=== PATIENT | male | born 1950 | race Caucasian/White ===

== ENCOUNTER → 2018-04-26 | Outpatient (CLI) | payer BC ==
[~2018-04-26] MED LIST: AMLO5TAB2 PO; ATR20T PO
--- NOTE | 2018-04-26 14:59 | Diagnostic Imaging Report ---
PROCEDURE: CT chest without contrast. TECHNIQUE: Multiple contiguous axial images were obtained through the chest without the use of intravenous contrast. INDICATION: Left basilar pulmonary nodule. Comparison is made to study of 01/10/2014 which included the lower portions of the lung carlos. 0.8 cm subpleural nodule in the left lung base has not significantly changed. There are several other areas of nodular pleural thickening in the chest bilaterally, which are not included on the previous study. There is no evidence of parenchymal pulmonary mass. No pathologic adenopathy is identified. There is a probable punctate calcification in the left upper lobe just below level of the barbara. There is no evidence of pathologic adenopathy. There are coronary artery calcifications. IMPRESSION: Pleural nodularity in both lungs with at least one nodule in the left base unchanged since 01/10/2014. These are likely benign. No acute abnormality is seen. Dictated by: Dictated on workstation # [id number]
--- NOTE | 2018-04-26 18:21 | Diagnostic Imaging Report ---
INDICATION: Left hydrocele. FINDINGS: Right testicle measures 3.8 x 2.3 x 2.6 cm and the left testicle measures 3.5 x 2.2 x 2.4 cm. Testes demonstrate homogeneous echotexture. No discrete testicular mass is seen. There is blood flow bilaterally. There is a large left hydrocele present. There is a tiny epididymal cyst on the left measuring approximately 8 mm x 6 mm. Right epididymis is not well visualized. IMPRESSION: 1. No evidence of testicular mass or vascular compromise. 2. Large left hydrocele. 2. Small left epididymal cyst. Dictated by: Dictated on workstation # [id number]
== END ==
LOC: RAD 13:40
PROVIDERS: ATTEND Nurse Practitioner Family
DX: N43.2 Other hydrocele (principal); R91.8 Other nonspecific abnormal finding of lung field; N50.3 Cyst of epididymis
CPT/HCPCS: 71250; 76870

== ENCOUNTER → 2018-08-27 | Outpatient (CLI) | payer BC ==
--- NOTE | 2018-08-27 14:53 | Diagnostic Imaging Report ---
PROCEDURE: US Bilateral lower extremity arterial. TECHNIQUE: Multiple real-time grayscale images are obtained through both lower extremity arterial systems with color Doppler imaging and color Doppler spectral analysis. INDICATION: Peripheral vascular disease and neuropathy. FINDINGS: There is predominantly triphasic and biphasic waveforms throughout both lower extremity arterial systems. No monophasic waveforms are seen. The velocities are symmetric bilaterally. No focal velocity elevation is seen to suggest stenosis. There is no occlusion. There is some mild plaquing present bilaterally. IMPRESSION: Mild bilateral plaque. No high-grade stenosis or occlusion is detected. Dictated by: Dictated on workstation # [id number]
== END ==
LOC: RAD 12:19
PROVIDERS: ATTEND Nurse Practitioner Family
DX: I70.203 Unspecified atherosclerosis of native arteries of extremities, bilateral legs (principal); G62.9 Polyneuropathy, unspecified
CPT/HCPCS: 93925

== ENCOUNTER 2019-09-23 07:44 | Emergency (ER) | payer OTHER, BC ==
[~2019-09-23] VITALS: Ht 167 cm; Wt 68.0 kg
--- OUTSIDE RECORDS SUMMARY | 2019-09-23 08:29 | XMS REPORT | Continuity of Care Document ---
[facility] Address Unknown Phone Unavailable Care Team Providers Care Nba Player Name Role Phone [facility] Unavailable Unavailable Problems Combined list of all problems from all [facility] of [facility] and [facility] facilities. It does not include entries that were removed or entered in error. Problem Status Onset Date Problem Type Date of Resolution Comments Source H/O: hypertension Active Condition [facility] Hyperlipidemia Active Condition [facility] Impaired fasting glucose Active [facility] Knee pain Active Condition [facility] ICD-10-CM I10. Essential (primary) hyper tension with Provider Comments: Essential (Primary) Hypertension active Diagnosis [facility] ICD-10-CM Z71.89 Other specified correctional substance abuse counselor ing with Provider Comments: Counseling,Oth Specified active Diagnosis [facility] Medications Combined list of all outpatient medications recorded within the last [address] [facility] and [facility] facilities, and also all patien t-reported medications. Medication Details Route Status Patient Instructions Prescription Expires Prescript ion Number Last Dispense Date Ordering Pr ovider Order Date Source AMLODIPINE BESYLATE 10MG TAB T SALLY ONE-HALF TABLET BY MOUTH ONCE DAILY ACTIVE JUVENCIO PALUMBO 04/30/2019 [facility] ASPIRIN 81MG TAB,EC TAKE ONE T ABLET BY MOUTH ONCE A DAY ACTIVE JUVENCIO VICK 01/06/2015 [facility] CBPADMINI ATORVASTATIN CA 40MG TAB TAKE ONE-HALF TABLET BY MOUTH AT BEDTIME ACTIVE JUVENCIO PALUMBO 04/30/2019 [facility] LORATADINE 10MG TAB TAKE ONE T ABLET BY MOUTH ONCE DAILY ACTIVE JUVENCIO PALUMBO 04/30/2019 [facility] MULTIVITAMIN/MINERALS HERBAL CAP/TAB TAKE 1 CAP/TAB BY MOUTH ONCE DAILY ACTIVE JUVENCIO PALUMBO 04/30/2019 [facility] VALACYCLOVIR HCL 500MG TAB SATYA E ONE TABLET BY MOUTH ACTIVE JUVENCIO PALUMBO 04/30/2019 [facility] Allergies, Adverse Reactions, Alerts Combined list of all allergies from all [facility] and [facility] facilities. It does not include entries that were removed or entered in error. Substance Category R eaction Severity Reaction type Status Date Reported Comments Source PENICILLIN Propensity to adverse r eactions to drug (disorder) Eruption Propensity to adverse reactions to drug (disorder) active 01/06/2015 [facility] PENICILLIN Propensity to adverse r eactions to drug (disorder) Propensity to adverse reactions to drug (disorder) active 04/30/2019 [facility] Immunizations Combined list of: 1) all immunizations on record at all [facility] ies, and 2) all available immunizations on record at [facility] ([employer] [facility]) facilities. Some immunizations on record at [facility] may not be included. Immunization Series Date Given Administered By Site Reaction Lot Number CVX Code Drug Construction Technician Status Comments Source PNEUMOCOCCAL POLYSACCHARIDE PPV23 02/04/2016 33 completed [facility] INFLUENZA, UNSPECIFIED FORMULATION 01/30/2016 88 completed [facility] INFLUENZA, SEASONAL, INJECTABLE, PRESERVATIVE FREE 01/29/2016 140 completed Partner: [place]. Administered by: [place] Clinician (NPI=Not Provided). Partner Lot#: [id number] Mfr: [facility] PNEUMOCOCCAL POLYSACCHARIDE PPV23 01/05/2016 33 completed [facility] INFLUENZA (HISTORICAL) 01/06/2015 88 [facility], SEASONAL, INJECTABLE, PRESERVATIVE FREE 01/06/2015 140 completed [facility] PNEUMOCOCCAL CONJUGATE PCV 13 01/06/2015 133 completed [facility] Results Combined list of recent chemistry, hematology and other laboratory results going back no more than 15 months from the Department of [facility] and [facility] facilities. Order Name Results Value Reference Range Date Interpretation Specimen Comments Source OCCULT BLOOD FIT x1 SCREEN HEMOGLOBIN.GASTROINTESTINAL.LOWER [PRESENCE] IN STOOL BY IMMUNOASSAY --1ST SPECIMEN Negative 0 05/10/2019 Specimen Type: FECES Comment: No collection date noted [facility] B12 COBALAMIN (VITAMIN B12) [M ASS/VOLUME] IN SERUM OR PLASMA 805 pg/mL 180 - 914 04/30/2019 Specimen Type: SERUM Comment: ~ADD-ON TO BLOOD ALREADY DRAWN [facility] PSA (FV) PROSTATE SPECIFIC AG [MASS/VOLUME] IN SERUM OR PLASMA 0.34 ng/mL 0.0 - 4.0 04/30/2019 Specimen Type: SERUM Comment: ~ADD-ON TO BLOOD ALREADY DRAWN [facility] TSH (FV) THYROTROPIN [UNITS/VO LUME] IN SERUM OR PLASMA BY DETECTION LIMIT <= 0.05 MIU/L 1.95 mcIU/mL 0.45 - 5.33 04/30/2019 Specimen Type: SERUM Comment: ~ADD-ON TO BLOOD ALREADY DRAWN [facility] CBC PLATELET MEAN VOLUME [ENTI TIC VOLUME] IN BLOOD BY AUTOMATED COUNT 7.6 fL 7.4 - 10.4 04/30/2019 Specimen Type: BLOOD No comment entered. [facility] CBC ERYTHROCYTE DISTRIBUTION W IDTH [RATIO] BY AUTOMATED COUNT 12.9 % 11.5 - 14.5 04/30/2019 Specimen Type: BLOOD No comment entered. [facility] CBC HEMATOCRIT [VOLUME FRACTIO N] OF BLOOD BY AUTOMATED COUNT 49.8 % 40 - 52 04/30/2019 Specimen Type: BLOOD No comment entered. [facility] CBC HEMOGLOBIN [MASS/VOLUME] IN BLOO D 17.0 g/dL 13 - 18 04/30/2019 Specimen T ype: BLOOD No comment entered. [facility] CBC PLATELETS [#/VOLUME] IN BLOOD BY AUTOMATED COUNT 218 K/cmm 150 - 440 04/30/2019 Specimen Type: BLOOD No comment entered. [facility] CBC LEUKOCYTES [#/VOLUME] IN BLOOD B Y AUTOMATED COUNT 8.9 K/cmm 3.8 - 10.6 04/30/2019 Specimen Type: BLOOD No comment entered. [facility] CBC ERYTHROCYTES [#/VOLUME] IN BLOOD BY AUTOMATED COUNT 5.14 M/cmm 4.4 - 5.9 04/30/2019 Specimen Type: BLOOD No comment entered. [facility] CBC MCV [ENTITIC VOLUME] BY AUTOMATE D COUNT 97.0 fL 80 - 100 04/30/2019 Specimen T ype: BLOOD No comment entered. [facility] CBC MCH [ENTITIC MASS] BY AUTOMATED COUNT 33.1 pg 26 - 34 04/30/2019 Specimen T ype: BLOOD No comment entered. [facility] CBC MCHC [MASS/VOLUME] BY AUTOMATED COUNT 34.1 g/dL 32 - 36 04/30/2019 Specimen T ype: BLOOD No comment entered. [facility] CBC SEGMENTED NEUTROPHILS/100 LEUKOCYTES IN BLOOD BY AUTOMATED COUNT 66.9 % 04/30/2019 Specimen Type: BLOOD No comment entered. [facility] CBC NEUTROPHILS [#/VOLUME] IN BLOOD BY AUTOMATED COUNT 6.0 K/cmm 2.4 - 7.6 04/30/2019 Specimen Type: BLOOD No comment entered. [facility] CBC LYMPHOCYTES/100 LEUKOCYTES IN BLOOD BY AUTOMATED COUNT 20.7 % 04/11 Specimen Type: BLOOD No comment entered. [facility] CBC LYMPHOCYTES [#/VOLUME] IN BLOOD BY AUTOMATED COUNT 1.8 K/cmm 1.0 - 4.8 04/30/2019 Specimen Type: BLOOD No comment entered. [facility] CBC MONOCYTES/100 LEUKOCYTES I N BLOOD BY AUTOMATED COUNT 7.9 % 04/30 Specimen T ype: BLOOD No comment entered. [facility] CBC MONOCYTES [#/VOLUME] IN BLOOD BY AUTOMATED COUNT 0.7 K/cmm 0.1 - 1.0 04/30/2019 Specimen Type: BLOOD No comment entered. [facility] CBC EOSINOPHILS/100 LEUKOCYTES IN BLOOD BY AUTOMATED COUNT 3.7 % 04/30 Specimen T ype: BLOOD No comment entered. [facility] CBC EOSINOPHILS [#/VOLUME] IN BLOOD BY AUTOMATED COUNT 0.3 K/cmm 0.0 - 0.4 04/30/2019 Specimen Type: BLOOD No comment entered. [facility] CBC BASOPHILS/100 LEUKOCYTES I N BLOOD BY AUTOMATED COUNT 0.8 % 04/30 Specimen T ype: BLOOD No comment entered. [facility] CBC BASOPHILS [#/VOLUME] IN BLOOD BY AUTOMATED COUNT 0.1 K/cmm 0.0 - 0.2 04/30/2019 Specimen Type: BLOOD No comment entered. [facility] LIPID PROFILE CHOLESTEROL [MAS S/VOLUME] IN SERUM OR PLASMA 183 mg/dL 118 - 200 04/30/2019 Specimen Type: SERUM No comment entered. [facility] LIPID PROFILE TRIGLYCERIDE [MA SS/VOLUME] IN SERUM OR PLASMA 55 mg/dL Specimen Type: SERUM No comment entered. [facility] LIPID PROFILE LDL CHOLESTEROL (CALCU LATED) 109 04/30/2019 Specimen Type: SERUM No comment entered. [facility] LIPID PROFILE CHOLESTEROL IN H DL [MASS/VOLUME] IN SERUM OR PLASMA 63 mg/dL Specimen Type: SERUM No comment entered. [facility] RENAL+LIVER PROFILE GLUCOSE [M ASS/VOLUME] IN SERUM OR PLASMA 109 mg/dL 70 - 110 04/30/2019 Specimen Type: SERUM No comment entered. [facility] RENAL+LIVER PROFILE ALBUMIN [M ASS/VOLUME] IN SERUM OR PLASMA 3.9 g/dL 3.4 - 5.0 04/30/2019 Specimen Type: SERUM No comment entered. [facility] RENAL+LIVER PROFILE ASPARTATE AMINOTRANSFERASE [ENZYMATIC ACTIVITY/VOLUME] IN SERUM OR PLASMA 31 U/L 15 - 37 04/30/2019 Specimen Type: SERUM No comment entered. [facility] RENAL+LIVER PROFILE BILIRUBIN. TOTAL [MASS/VOLUME] IN SERUM OR PLASMA 0.57 mg/dL 0.3 - 1.2 04/30/2019 Specimen Type: SERUM No comment entered. [facility] RENAL+LIVER PROFILE CHLORIDE [ MOLES/VOLUME] IN SERUM OR PLASMA 105 mmol/L 98 - 107 04/30/2019 Specimen Type: SERUM No comment entered. [facility] RENAL+LIVER PROFILE PROTEIN [M ASS/VOLUME] IN SERUM OR PLASMA 6.8 g/dL 6.1 - 7.9 04/30/2019 Specimen Type: SERUM No comment entered. [facility] RENAL+LIVER PROFILE SODIUM [MO LES/VOLUME] IN SERUM OR PLASMA 137 mmol/L 136 - 145 04/30/2019 Specimen Type: SERUM No comment entered. [facility] RENAL+LIVER PROFILE POTASSIUM [MOLES/VOLUME] IN SERUM OR PLASMA 4.1 mmol/L 3.5 - 5.1 04/30/2019 Specimen Type: SERUM No comment entered. [facility] RENAL+LIVER PROFILE "CARBON DI OXIDE, TOTAL [MOLES/VOLUME] IN SERUM OR PLASMA" 25 mmol/L 21 - 32 04/30/2019 Specimen Type: SERUM No comment entered. [facility] RENAL+LIVER PROFILE UREA NITRO GEN [MASS/VOLUME] IN SERUM OR PLASMA 18 mg/dL 6 - 20 04/30/2019 Specimen Type: SERUM No comment entered. [facility] RENAL+LIVER PROFILE CALCIUM [M ASS/VOLUME] IN SERUM OR PLASMA 8.9 mg/dL 8.9 - 10.3 04/30/2019 Specimen Type: SERUM No comment entered. [facility] RENAL+LIVER PROFILE ALANINE AM INOTRANSFERASE [ENZYMATIC ACTIVITY/VOLUME] IN SERUM OR PLASMA BY NO ADDITION OF P-5'-P 30 U/L 0 - 63 04/30/2019 Specimen Type: SERUM No comment entered. [facility] RENAL+LIVER PROFILE ALKALINE P HOSPHATASE [ENZYMATIC ACTIVITY/VOLUME] IN SERUM OR PLASMA 64 U/L 32 - 126 04/30/2019 Specimen Type: SERUM No comment entered. [facility] RENAL+LIVER PROFILE eGFR 90 04/30/2019 Specimen Type: SERUM No comment entered. [facility] RENAL+LIVER PROFILE CREATININE [MASS/VOLUME] IN SERUM OR PLASMA 0.85 mg/dL .61 - 1.24 04/30/2019 Specimen Type: SERUM No comment entered. [facility] C ANTIBODY HEPATITIS HEPATITIS C VIRUS AB [PRESENCE] IN SERUM OR PLASMA BY IMMUNOASSAY Nonreactive 04/30/2019 Specimen Type: SERUM Comment: ~ADD-ON TO BLOOD ALREADY DRAWN HCV:A negative test result does not exclude the possibility of HCV:exposure to or infection with HCV. HCV antibodies may be HCV:undetectable in some stages of the infection and in some HCV:clinical conditions. Results from immunosuppressed individuals HCV:should be interpreted with caution. Negative for HIV-1 antigen and HIV-1/HIV-2 antibodies. No laboratory evidence of HIV infection. If acute HIV infection is suspected, consider testing for HIV-1 RNA. [facility] HIV Ag/Ab COMBO HIV 1+2 AB+HIV 1 P24 AG [PRESENCE] IN SERUM OR PLASMA BY IMMUNOASSAY Nonreactive 04/30/2019 Specimen Type: SERUM Comment: ~ADD-ON TO BLOOD ALREADY DRAWN HCV:A negative test result does not exclude the possibility of HCV:exposure to or infection with HCV. HCV antibodies may be HCV:undetectable in some stages of the infection and in some HCV:clinical conditions. Results from immunosuppressed individuals HCV:should be interpreted with caution. Negative for HIV-1 antigen and HIV-1/HIV-2 antibodies. No laboratory evidence of HIV infection. If acute HIV infection is suspected, consider testing for HIV-1 RNA. [facility] Vital Signs Combined list of inpatient and outpatient Vital Signs from all [facility] and/or [facility] medical facilities within the last 15 months. The included entries comply with the patient's data sharing authorizations. Vital Sign Value Date Comments Source SYSTOLIC BLOOD PRESSURE 137mm[ Hg] 04/30/2019 10:25:00 [facility] DIASTOLIC BLOOD PRESSURE 87mm[ Hg] 04/30/2019 10:25:00 [facility] PAIN 0 04/30 10:25:00 [facility] Encounters Combined list of encounters at [facility] and[facility]or [facility] [facility] for the last 15 months. Not all [place] inpatient encounters are included. The incl uded entries comply with the patient's data sharing authorizations. Location Location Details Encounter Type Encounter Number Reason For Visit Attending Provider ADM Date DC Date Status Disposition Source Outpatient Encounter [id number] _MAPID:en 10/17/2018 [facility] Outpatient Encounter [id number] ICD-10- CM Z71.89 Other specified counseling with Provider Comments: Counseling,Oth Specified MELVIN HARVEY I 03/18/2019 [facility] Outpatient Encounter [id number] _MAPID:[id number] 04/30/2019 [facility] OFFICE/[place] [id number] ICD-10- CM I10. Essential (primary) hypertension with Provider Comments: Essential (Primary) Hypertension JUVENCIO PALUMBO 04/30/2019 [facility] Outpatient Encounter [id number] _MAPID: [id number] 05/14/2019 [facility] Outpatient Encounter [id number] _MAPID:en [id number] 05/24/2019 [facility] Outpatient Encounter [id number] _MAPID: endReason07/11/2019 [facility] Procedures No Data Provided for This Section Social History Combined list of available smoking, tobacco, and other social history on record at [facility] of [facility] and/or [facility] facilities. The included entrie s comply with the patient's data sharing authorizations. Social History Type Response Date Comment Source Tobacco smoking status ORIS VA-TOBACCO USE MEAT STUFFER NO 03/18/2019 [facility] History of tobacco use VA-TO BACCO USE MED NO 03/18/2019 [facility] History of tobacco use VA-TO BACCO USE ADVICE 03/18/2019 [facility] History of tobacco use V16 T OBACCO USE SCREEN 03/18/2019 [facility] History of tobacco use VA-TO BACCO USER EVERY DAY 03/18/2019 [facility] History of tobacco use VA-TO BACCO USE WI 30 MIN OF WAKEUP 03/18/2019 [facility] History of tobacco use VA-TO BACCO USE 30 YEARS OR MORE 03/18/2019 [facility] History of tobacco use NON-T OBACCO USER 01/06/2015 [facility] Assessment and Plan No Data Provided for This Section Plan of Care No Data Provided for This Section Family History No Data Provided for This Section Advance Directives No Data Provided for This Section Functional Status No Data Provided for This Section
--- OUTSIDE RECORDS SUMMARY | 2019-09-23 08:29 | XMS REPORT ---
Author Author O Entregador. land surveyor [facility] Address [address] [address] Care Team Providers Care Business Development Representative Name Role Phone EUSEBIO LAI RN INFORMATICS Unavailable Unavailable RICK LOO, DAQUAN Kinsey Unavailable Unavailable Unavailable Unavailable Allergies Normalized Allergy Reported Date of Reaction(s) Care Provider Facility Allergy Type classification allergen Allergy Onset Drug Allergy Penicillins Penicillin 02-20-2012 - no information KEVYN SCHOELING Not Available (11 sources.) (antibiotic) MD ([id number]) Medications No Information Problems Problem Normalized Date Last Normalized Normalized Provider Fa cility Classification Problem(s) Recorded Problem Problem Sta tus Duration Abdominal pain Abdominal Episodic Active ASHDEN PANDA Not Available (1 source.) pain, (82373) unspecified site Other male Cyst of Episodic Active EUSEBIO MING Not Avail able genital epididymis (75592) disorders (3 sources.) Other male Hydrocele, Episodic Active ASHDEN PANDA Not Briteny ilable genital unspecified (40497) disorders (1 source.) Abdominal Inguinal Episodic Active ASHDEN PANDA Not Availa ble hernia (1 hernia, (38340) source.) without mention of obstruction or gangrene, unilateral or unspecified (not specified as recurrent) Other male Other Episodic Active EUSEBIO MING Not Avail able genital hydrocele (27181) disorders (3 sources.) Other lower Other Episodic Active EUSEBIO MING Not Avai lable respiratory nonspecific (47570) disease (3 abnormal sources.) finding of lung field Residual Other Episodic Active KEVYN SCHOELING Not Avai lable codes; MD fred (71947) unclassified abnormal (1 source.) findings Other male Other Episodic Active ASHDEN PANDA Not Avail able genital specified (42868) disorders (1 disorders of source.) male genital organs Other nervous Polyneuropathy Chronic Active EUSEBIO MING [facility] system , unspecified Michelle disorders (2 Hospital - sources.) [place] (15829) Other lower Solitary Episodic Active ASHDEN PANDA Not Avai lable respiratory pulmonary (81610) disease (1 nodule source.) Peripheral and Unspecified Chronic Active EUSEBIO MING [facility] visceral atherosclerosi Michelle atherosclerosi s of [facility] - s (2 sources.) arteries [facility] extremities, (85823) bilateral legs Procedures No Information Immunizations Normalized Immunization Date Notes Care Provider Facili ty Immunization influenza, 01-25-2017 no information no name Not Availab le injectable, (75163) quadrivalent, preservative free Results No Information Vital Signs No Information Interventions No Information Plan of Treatment No Information Goals No Information Social History No Information Functional Status No Information Mental Status No Information Encounters Encounter Normalized Encounter Encounter Diagnosis Care Provi leslie Organization Date Type 09-23-2019 Emergency department no information DAQUAN CABRERA MD (no [facility] Michelle patient visit phone) [facility] (no phone) 08-27-2018 Patient encounter no information no name no or ganization name procedure 08-27-2018 Patient encounter no information no name no or ganization name procedure 04-26-2018 Patient encounter no information no name no or ganization name procedure 01-10-2014 Patient encounter no information no name no or ganization name procedure 01-07-2014 Patient encounter no information no name no or ganization name procedure 08-29-2013 Patient encounter no information no name no or ganization name procedure Patient encounter no information no name no organizat ion name procedure Medical Equipment No Information Payers No Information Additional Source Comments This clinical document has been generated using [employer] software that has been certified by the Office of the National Coordinator for Health Information Technology (ONC 15.99.04.3023.Diam.[id number]) and the National Committee for Hardware Technician (NCQA, as an eMeasure certified technology). FOR RECORDS PERTAINING TO PATIENTS WHO ARE OR HAVE BEEN ENROLLED IN A CHEMICAL D EPENDENCY/SUBSTANCE ABUSE PROGRAM, SOME INFORMATION MAY BE OMITTED. This clinica l summary was aggregated from multiple sources. Caution should be exercised in using it in the provision of clinical care. This summary normalizes information from multiple sources, and as a consequence, information in this document may ma terially change the coding, format and clinical context of patient data. In marie tion, data may be omitted in some cases. CLINICAL DECISIONS SHOULD BE BASED ON T HE PRIMARY CLINICAL RECORDS. [employer] provides no warranty or guara ntee of the accuracy or completeness of information in this document.The followi ng information is based on time limited clinical information
--- OUTSIDE RECORDS SUMMARY | 2019-09-23 08:30 | XMS REPORT | Encounter Summary ---
Author Author Department of [facility] ELOY miller ALPHONSO Organization Department of [facility] Address [address] [place] [address] Phone Unavailable Care Team Providers Care Hardware Assembler Name Role Phone JUVENCIO PALUMBO PCP Unavailable Insurance Providers: All historical and current Section Date Range: From patient's date of to the date document was create d. This section includes the names of all active insurance providers for the ramiro allan Insurance Provider Type of Coverage Plan Name Start of Policy Co verage End of Policy Coverage Group Number Member ID Insurance Provider's Telephone N umber Policy Woodard's Name Patient's Relationship to Policy Woodard BC BS AR BLUECARD PREFERRED PROVIDER ORGANIZATION (PPO) COMPREHE NSIVE MAJOR Jan 08, 2019 [id number] ELOY KNIGHT CODY ENT [place] BS [place] BLU[place] PREFERRED PROVIDER ORGANIZATION (PPO) COMPREHE NSIVE MAJOR Jan 08, 2019 [id number] ELOY KNIGHT CODY ENT BCBS [place]ORIE COMPREHENSIVE MAJOR MEDICAL USD 250 Jul 10, 2015 [id number] [phone] ELOY KNIGHT PATIENT [place] COMPREHENSIVE MAJOR MEDICAL USD 250 Jul 10, 2015 [id number] [phone] EUGENEELOY PATIENT MEDICARE (WNR) MEDICARE (M) PART A Jan 08, 2019 PART A [id number] [phone] EUGENEELOY PATIENT MEDICARE (WNR) MEDICARE (M) PART A Jun 09, 2015 PART A [id number] [phone] ELOY KNIGHT PATIENT MEDICARE (WNR) MEDICARE (M) PART B Jun 09, 2015 PART B [id number] [phone] ELOY KNIGHT PATIENT [employer] PRESCRIPTION [place] Jul 10, 2015 [id number] [phone] ELOY KNIGHT PATIENT [employer] [place] Jan 08, 2019 [id number] ELOY KNIGHT PATIENT Selected Encounter This section includes the information on record at [place] for the Encounter. Date/Time Encounter Type Encounter Description Reason Provider Source May 24, 2019 10:13 AM Outpatient Encounter COMMUNITY CARE CONSULT KLEBER HAMMOND IHRambo Encounter Template Text not used by [place] Assessments - Encounter Diagnoses No Data Provided for This Section Plan of Treatment: Future Appointments (+ 6 months) and Future Tests (+/- 45 day s) The Plan of Treatment section includes future care activities for the patient fr om all [place] treatment facilities. This section includes future appointments and fu ture orders which are active, pending or scheduled. Active, Pending, and Scheduled Orders This section includes a listing of several types of activ e, pending, and scheduled orders, including clinic medications orders, diagnosti c test orders, procedure orders and consult orders; where the start date of th e order is 45 days before the date of the Encounter or 45 days after the date o f the Encounter. The data comes from all [place] treatment facilities. Test Date/Time Test Type Test Details Facility Name Apr 26, 2019 12:00 AM Laboratory - Chemistry Order URINALYSIS UR INE SP ONE-TIME [facility] Surgical Procedures: All associated to the encounter No Data Provided for This Section Lab Results: +/- 30 days of the encounter This section includes the Chemistry and Hematology Lab R esults on record with [place] for the patient. Radiology Reports and Pathology Report s are provided separately, in subsequent sections. Lab Results This section contains the Chemistry/Hematology Results patrice t were resulted 30 days before or 30 days after the date of the Encounter. Date/Time Source Result Type Result - Unit Interpretation Reference Range Comment May 10, 2019 04:[address] [facility] OCCULT BLOOD FIT x1 SCREE N Specimen Type: FECES Comment: No collection date noted OCCULT BLOOD FIT x1 SCREEN Negative NEG ATIVE Apr 30, 2019 08:[address] [facility] B12 Specimen Type: SERUM Comment: ~ADD-ON TO BLOOD ALREADY DRAWN VITAMIN B12 (FV) 805 pg/mL 180-914 Apr 30, 2019 08:[address] [facility] PSA (FV) Specimen Type: SERUM Comment: ~ADD-ON TO BLOOD ALREADY DRAWN PSA (FV) 0.34 ng/mL 0.0-4.0 Apr 30, 2019 08:[address] [facility] TSH (FV) Specimen Type: SERUM Comment: ~ADD-ON TO BLOOD ALREADY DRAWN TSH (FV) 1.95 mcIU/mL 0.45-5.33 Apr 30, 2019 08:[address] [facility] CBC Specimen Type: BLOOD No comment entered. MPV (FV) 7.6 fL 7.4-10.4 RDW (FV) 12.9 % 11.5-14.5 HCT (FV) 49.8 % 40-52 HGB (FV) 17.0 g/dL 13-18 PLT (FV) 218 K/cmm 150-440 WBC (FV) 8.9 K/cmm 3.8-10.6 RBC (FV) 5.14 M/cmm 4.4-5.9 MCV (FV) 97.0 fL 80-100 MCH (FV) 33.1 pg 26-34 MCHC (FV) 34.1 g/dL 32-36 NE% (FV) 66.9 % SEE ABSOLUTE # NE# (FV) 6.0 K/cmm 2.4-7.6 LY% (FV) 20.7 % SEE ABSOLUTE # LY# (FV) 1.8 K/cmm 1.0-4.8 MO% (FV) 7.9 % SEE ABSOLUTE # MO# (FV) 0.7 K/cmm 0.1-1.0 EO% (FV) 3.7 % SEE ABSOLUTE # EO# (FV) 0.3 K/cmm 0.0-0.4 BA% (FV) 0.8 % SEE ABSOLUTE # BA# (FV) 0.1 K/cmm 0.0-0.2 Apr 30, 2019 08:[address] [facility] LIPID PROFILE Specimen Type: SERUM No comment entered. CHOLESTEROL, TOTAL (FV) 183 mg/dL 118-20 0 TRIGLYCERIDE (FV) 55 mg/dL <200 LDL CHOLESTEROL (CALCULATED) 109 HDL CHOLESTEROL (FV) 63 mg/dL >40 Apr 30, 2019 08:[address] [facility] RENAL+LIVER PROFILE Specimen Type: SERUM No comment entered. GLUCOSE (FV) 109 mg/dL 70-110 ALBUMIN (FV) 3.9 g/dL 3.4-5.0 AST (FV) 31 U/L 15-37 TOTAL BILIRUBIN (FV) 0.57 mg/dL 0.3-1.2 CHLORIDE (FV) 105 mmol/L 98-107 TOTAL PROTEIN (FV) 6.8 g/dL 6.1-7.9 SODIUM (FV) 137 mmol/L 136-145 POTASSIUM (FV) 4.1 mmol/L 3.5-5.1 CO2 (FV) 25 mmol/L 21-32 UREA NITROGEN (FV) 18 mg/dL 6-20 CALCIUM (FV) 8.9 mg/dL 8.9-10.3 ALT (FV) 30 U/L 0-63 ALK. PHOS. (FV) 64 U/L 32-126 eGFR 90 CREATININE (FV) 0.85 mg/dL .61-1.24 Apr 30, 2019 08:[address] [facility] C ANTIBODY HEPATITIS Specimen Type: SERUM Comment: ~ADD-ON TO BLOOD [...] is suspected, consider testing for HIV-1 RNA. C ANTIBODY HEPATITIS Nonreactive Nonrea ctive Apr 30, 2019 08:[address] [facility] HIV Ag/Ab COMBO Specimen Type: SERUM Comment: ~ADD-ON TO BLOOD [...] is suspected, consider testing for HIV-1 RNA. HIV Ag/Ab COMBO Nonreactive Nonreactive Vital Signs: All taken on the encounter date No Data Provided for This Section Immunizations: All administered on the encounter date No Data Provided for This Section Social History: Smoking Status (Most current) and Tobacco Use (All prior to enco unter date) No Data Provided for This Section Advance Directives: All historical and current No Data Provided for This Section Allergies and Adverse Reactions (ADRs): All historical and current Section Date Range: From patient's date of to the date document was create d. This section includes Allergies and Adverse Reactions (ADR s) on record with [place] for the [place]. The data comes from a ll [place] treatment facilities. It does not list Allergies/ADRs that were removed or entered in error. Some allergies/ADRs may be reported in t he Immunization section. Allergen Event Date Event Type Reaction(s) Severity Source PENICILLIN Apr 30, 2019 Propensity to adverse reactions to drug (diso rder) KLEBER HAMMOND PENICILLIN Jan 06, 2015 Propensity to adverse reactions to drug (disorder) Eruption [facility] 15 Medications: VA dispensed (-15 months) and Non-VA Documented (Obtained Outside A) Section Date Range: 1) prescriptions processed by a [facility] pharmacy in the last 15 m [facility], and 2) all medications recorded in the [place] medical record as "non-VA medic ations". Pharmacy terms refer to [place] pharmacy's work on prescriptions. [place] patient s are advised to take their medications as instructed by their health care team. The data comes from all [place] treatment facilities. Glossary of Pharmacy Terms:Active = A prescription that can be filled at the local [place] pharmacy.Active: On Hold = An active prescription that will not be filled until pharmacy resolves the issue.Active: Susp = An active prescription that is not scheduled to be filled yet.Clinic Order = A medication received during a visit to a [place] clinic or emergency department (currently not available).Discontinued = A prescription stopped by a VA provider. It is no longer available to be filled. = A prescription which is too old to fill. This does not refer to the expiration date of the medication in the container. Non-VA = A medication that came from someplace other than a VA pharmacy. This may be a prescription from either the VA or other providers that was filled outside the VA. Or, it may be an over the counter (OTC), herbal, dietary supplement or sample medication.Pending = This prescription order has been sent to the Pharmacy for review and is not ready yet. Medication Name and Strength Pharmacy Term Instructions Quantity Or dered Prescription Expires Prescription Number Last Dispense Date Ordering Provider Facility AMLODIPINE BESYLATE 10MG TAB Non-VA TAKE ONE-HALF TABLET BY MOUTH ONCE DAILY Non-VA Documented by: JUVENCIO PALUMBO nted at: [facility] ASPIRIN 81MG TAB,EC Non- VA TAKE ONE TABLET BY MOUTH ONCE A DAY Non-VA Documented by: JUVENCIO VICKume nted at: [facility] ATORVASTATIN CA 40MG TAB Non-VA TAKE ONE- HALF TABLET BY MOUTH AT BEDTIME Non-VA Docume nted by: JUVENCIO PALUMBO nted at: [facility] LORATADINE 10MG TAB Non- VA TAKE ONE TABLET BY MOUTH ONCE DAILY Non-VA Documented by: JUVENCIO PALUMBO nted at: [facility] MULTIVITAMIN/MINERALS HERBAL CAP/TAB Non-VA TAKE 1 CAP/TAB BY MOUTH ONCE DAILY Non-VA Documented by: JUVENCIO PALUMBO nted at: [facility] VALACYCLOVIR HCL 500MG TAB Non-VA TAKE ONE TABLET BY MOUTH N on-VA Documented by: JUVENCIO PALUMBO nted at: [facility] Problems (Conditions): All historical and current Section Date Range: From patient's date of to the date document was create d. This section includes a list of Problems (Conditions) know n to [facility] for the patient. It includes both active and inacti ve problems (conditions). The data comes from all [place] treatment facilities. Problem Status Problem Code Date of Onset Date of Resolution Comm ent(s) Provider Source H/O: hypertension Active [id number] ALICIA VICK [facility] Hyperlipidemia Active [id number] JUVENCIO VICK [facility] Impaired fasting glucose Active [id number] YENY MAJOR [facility] Knee pain Active [id number] JUVENCIO VICK [facility] Radiology Reports: +/- 30 days of the encounter No Data Provided for This Section Pathology Reports: +/- 30 days of the encounter No Data Provided for This Section Encounter Notes: All associated encounter notes This section contains the clinical notes associated to the Encounter. Date/Time Encounter Note(s) Provider Source May 24, 2019 10:13 AM NONVA NOTE: LOCAL TITLE: COMMUNITY CARE-SCHEDULING STANDARD TITLE: NONVA NOTE DATE OF NOTE: MAY 24, 2019@10:13 ENTRY DATE: MAY 24, 2019@10:13:52 AUTHOR: JUVENCIO KENDALL COSIGNER: URGENCY: STATUS: COMPLETED Patient Centered Community Care (PC3) Program Department [facility] Choice Approval for Medical Care VA-Form [id number] Certain protected health information (PHI) may be enclosed; specifically information related to Drug Abuse, Alcoholism or Alcohol Abuse, Sickle Cell Anemia, and Human Immunodeficiency Virus (HIV). This specific PHI may NOT be re-disclosed or used by the recipient person or office for any purpose other than that for which the disclosure was made. [Ref. 38 [facility] 7332(b)(2)(H)(ii)] The information is b eing disclosed by [place] only for the treatment and care of the named patient in the health record. Accounting of disclosure must be maintained when required. Referral Urgency: Routine Indicate time frame for appointment: Clinically Indicated Date (MARIANELA): Apr 30, 2019 Category of Care/Type of Specialty: COMMUNITY CARE-GENERALSURGERY Type of Specialist: COMMUNITY CARE-GENERALSURGERY Type of Service/Procedure: SEOC ID: [id number] [id number] Description: See previous comments for details [facility] Eligibility: Drive Time CAP-Community Care Approved, Program: Authorized/Pre-authorized Referral - 1703 Admin Screening for Care Coordination SCD-Screening Code: [id number] Urgency: not within 48 hrs CAN Score: 25 Admin Screening Care Coordination: Basic Clinical Triage: Not Required Cold Roller may proceed with scheduling of appointment. Basic care coordination may include: -assistance with navigation -scheduling -post-appointment follow-up Upon consult completion, a CPRS alert will be sent to ordering provider. Recommended frequency of contact: as needed Admin Staff alert, sending to: Kashif Mckeon . CRISTINA-Initiate Community Care Referral SEOC - [facility] Office of Community Care [facility] Office of Community Care - Standardized Episode of Care General Surgery CAT-SEOC Randal: SURGERY GENERAL SEOC ID: [id number] [id number] Description: This authorization covers services associated with all medical care listed below for the referred condition on the consult. Duration: 180 days Procedural Overview: 1. Initial outpatient evaluation and treatment for the referred condition indicated on the consult 2. Diagnostic imaging relevant to the referred condition on the consult 3. Diagnostic studies relevant to the referred condition on the consult 4. Labs and pathology relevant to the referred condition on the consult 5. Procedures relevant to the referred condition on the consult including but not limited to: I&D, biopsy, lesion excision with repair, port placement etc. 6. Anesthesia consultation related to the procedure 7. Pre-operative medical and cardiac clearance as indicated (including H+P/labs, EKG, CXR) 8. Inpatient or observation admission for surgery/ procedure if indicated 9. Inpatient admission or observation status for complications related to the surgery/procedure VA notification within 72 hours to Facility Community Care Office who initiated the referral is required for complications related to the initial surgery/procedure 10. Follow-up visits for this episode of care relevant to the referred condition on the consult Please visit the [facility] Storefront [email or web address] for additional resources and requirements pertaining to the following Pharmacy prescribing requirements Durable Medical Equipment (DME), Prosthetics, and Orthotics prescribing requirements Precertification (PRCT) process requirements Request for Services (RFS) requirements LIONEL CAT-SEOC Randal: SURGERY GENERAL ICR-Initiate Community Care Referral * * * [place] Critical Result Contact Information * * * Please contact the VA at [phone] & ask for Veterans PCP with in one business day if there are any critical or significantly abnormal findings that need to be addressed. Thank you for your help in ensuring that critical results reach the VA ordering provider. Number of Visits, Frequency, and Duration: Duration: 180 days [facility] or [facility] Preferred Provider Name and Contact Information: Eligibility Verification: As the authorized VA customer engagement representative, I hereby confirm that the is eligible for Community Care services. The [facility] basic eligibility was verified on . Contact the Facility Community Care Office first to provide information to the VA or to reach a VA ordering provider. All contact from the contractor will be documented in the [facility] record by the facility [place] community Care and the VA provider will be notified for awareness. Report all Critical Findings related to this authorization to the issuing office below. All other questions regarding this authorization should be directed to: CHRIS CRUZ Facility Community Care Office Contact: Facility Community Care emergency response officer or Equivalent: Name: FUNMI SHAFFER Title: CHIEF, OFFICE OF COMMUNITY CARE Contact Number (Normal Business Hours):[phone] AOD/Emergency Contact After Hours Number: From Station Number: [phone] Facility Name: [facility] ([facility] Street Address: [address] City: [place] State: [place] Zip: [address] Information: Name: ELOY KNIGHT : Jun SSN: [id number] Address: ELOY KNIGHT [address], [place] [address] [facility] Alternate Phone: PATIENT WORK PHONE - NONE FOUND 's Alternate Address: Alternate POC for [facility]: Name: Address: Phone: In accordance with 38 CFR 17.7468-4311, [place] will pay for non-VA hospital care and medical services that are authorized by [place] for [place] who are determined by [place] to meet the [place] Choice Program eligibility criteria set forth by section 101 of the Act and 38 CFR 17.1510 and any other eligibility standards that may apply to particular services (such as health care for newborns of Veterans under 38 CFR 17.38(a)(xiv) and dental benefits under 17.160-17.169). /balbir/ JUVENCIO KENDALL Signed: 05/24/2019 10:14 JUVENCIO KENDALL
--- OUTSIDE RECORDS SUMMARY | 2019-09-23 08:30 | XMS REPORT | Encounter Summary ---
Author Author Department of [facility] ELOY miller ALPHONSO Organization Department of [facility] Address [address] [place] [address] Phone Unavailable Care Team Providers Care Stock Selector Name Role Phone MIRYAMALIREZA JUVENCIO PCP Unavailable Insurance Providers: All historical and [...] (PPO) COMPREHE NSIVE MAJOR Jan 08, 2019 [id number] ELOY KNIGHT CODY ENT [place] PREFERRED PROVIDER ORGANIZATION (PPO) COMPREHE NSIVE MAJOR Jan 08, 2019 [id number] ELOY KNIGHT CODY ENT BCBS [place]OR[place] COMPREHENSIVE MAJOR MEDICAL USD 250 Jul 10, 2015 [id number] [phone] ELOY KNIGHT PATIENT [place] COMPREHENSIVE MAJOR MEDICAL USD 250 Jul 10, 2015 [id number] [phone] ELOY KNIGHT PATIENT MEDICARE (WNR) MEDICARE (M) PART A Jan 08, 2019 PART A [id number] ELOY KNIGHT PATIENT MEDICARE (WNR) MEDICARE (M) PART A Jun 09, 2015 PART A [id number] [phone] ELOY KNIGHT PATIENT MEDICARE (WNR) MEDICARE (M) PART B Jun 09, 2015 PART B [id number] ELOY KNIGHT PATIENT [employer] PRES[employer] [place] Jul 10, 2015 [id number] [phone] LEOY KNIGHT PATIENT [employer] PRES[employer] [place] Jan 08, 2019 [id number] ELOY KNIGHT PATIENT Selected Encounter This section includes the information on record at [place] for the Encounter. Date/Time Encounter Type Encounter Description Reason Provider Source May 14, 2019 04:00 PM Outpatient Encounter ADMIN PAT ACTIVTIES (MASNO NCT) [facility] IHE Encounter Template Text not used by [place] [...] Chemistry Order URINALYSIS UR INE SP ONE-TIME [facility] Surgical Procedures: All associated to the [...] Range Comment May 10, 2019 04:49 PM [facility] OCCULT BLOOD FIT x1 SCREE N Specimen Type: FECES Comment: No collection date noted OCCULT BLOOD FIT x1 SCREEN Negative NEG ATIVE Apr 30, 2019 08:24 AM [facility] B12 Specimen Type: SERUM Comment: ~ADD-ON TO BLOOD ALREADY DRAWN VITAMIN B12 (FV) 805 pg/mL 180-914 Apr 30, 2019 08:24 AM [facility] PSA (FV) Specimen Type: SERUM Comment: ~ADD-ON TO BLOOD ALREADY DRAWN PSA (FV) 0.34 ng/mL 0.0-4.0 Apr 30, 2019 08:24 AM [facility] TSH (FV) Specimen Type: SERUM Comment: ~ADD-ON TO BLOOD ALREADY DRAWN TSH (FV) 1.95 mcIU/mL 0.45-5.33 Apr 30, 2019 08:23 AM [facility] CBC Specimen Type: BLOOD No comment [...] K/cmm 0.0-0.2 Apr 30, 2019 08:23 AM [facility] LIPID PROFILE Specimen Type: SERUM No comment entered. CHOLESTEROL, TOTAL (FV) 183 mg/dL 118-20 0 TRIGLYCERIDE (FV) 55 mg/dL <200 LDL CHOLESTEROL (CALCULATED) 109 HDL CHOLESTEROL (FV) 63 mg/dL >40 Apr 30, 2019 08:23 AM [facility] RENAL+LIVER PROFILE Specimen Type: SERUM No [...] mg/dL .61-1.24 Apr 30, 2019 08:23 AM [facility] C ANTIBODY HEPATITIS Specimen Type: SERUM [...] Nonrea ctive Apr 30, 2019 08:23 AM [facility] HIV Ag/Ab COMBO Specimen Type: SERUM [...] Use (All prior to enco unter date) This section includes the most current, and the historical, smoking and tobacco- related health factors from the [place] facility where the Encounter took place. Current Smoking Status This section includes the most current smoking, or tobacco -related health factor, from the [place] facility where the Encounter took place. Date/Time Current Smoking Status Comment Facility Mar 18, 2019 03:39 PM VA-TOBACCO USE WATER QUALITY ANALYST NO [facility] Tobacco Use History This section includes a history of the smoking, or tobacco -related health factors, that were collected on or before the date of the Encoun ter. The data comes from the [place] facility where the Encounter took place. Date/Time Smoking Status/Tobacco Use Comment [facility] it Mar 18, 2019 03:39 PM VA-TOBACCO USE 30 YEARS OR MORE [place] [facility] Mar 18, 2019 03:39 PM VA-TOBACCO USE ADVICE [facility] [place] [facility] Mar 18, 2019 03:39 PM VA-TOBACCO USE WATER QUALITY ANALYST NO [facility] Mar 18, 2019 03:39 PM VA-TOBACCO USE MED NO [facility] Mar 18, 2019 03:39 PM VA-TOBACCO USE WI [facility] Mar 18, 2019 03:39 PM VA-TOBACCO USER EVERY DAY [facility] Advance Directives: All historical and current No Data Provided for This Section Allergies and Adverse Reactions (ADRs): All historical and current Section Date Range: From patient's date of to the date document was create d. This section includes Allergies and Adverse Reactions (ADR s) on record with VA for the patient. The data comes from a [facility] treatment facilities. It does not list Allergies/ADRs that were removed or entered in error. Some allergies/ADRs may be reported in t Immunization section. Allergen Event Date Event Type Reaction(s) Severity Source PENIC[place] Apr 30, 2019 Propensity to adverse reactions to drug (diso rder) KLEBER HAMMOND [place] Jan 06, 2015 Propensity to adverse reactions to drug (disorder) Eruption [facility] 15 Medications: VA dispensed (-15 months) and Non-VA Documented (Obtained Outside A) Section Date Range: 1) prescriptions processed by a VA pharmacy in the last 15 m [facility], and 2) all medications recorded in the VA medical record as "non-VA medic ations". Pharmacy terms refer to VA pharmacy's work on prescriptions. VA patient s are advised to take their medications as instructed by their health care team. The data comes from all [place] treatment facilities. Glossary of Pharmacy Terms:Active = A prescription that can be filled at the local VA pharmacy.Active: On Hold = An active prescription [...] may be a prescription from either the [place] or other providers that was filled outside the [place]. Or, it may be an over the [...] Non-VA Documented by: JUVENCIO PALUMBO nted at: [facility] ASPIRIN 81MG TAB,EC Non- VA TAKE ONE TABLET BY MOUTH ONCE A DAY Non-VA Documented by: JUVENCIO VICK Docume nted at: [facility] ATORVASTATIN [place] 40MG TAB Non-VA TAKE ONE- HALF TABLET BY MOUTH AT BEDTIME Non-VA Docume nted by: JUVENCIO PALUMBO nted at: [facility] LORATADINE 10MG TAB Non- VA TAKE ONE TABLET BY MOUTH ONCE DAILY Non-VA Documented by: JUVENCIO PALUMBO nted at: [facility] MULTIVITAMIN/MINERALS HERBAL CAP/TAB Non-VA TAKE 1 CAP/TAB BY MOUTH ONCE DAILY Non-VA Documented by: JUVENCIO PALUMBO nted at: [facility] VALACYCLOVIR HCL 500MG TAB Non-VA TAKE ONE TABLET BY MOUTH N on-VA Documented by: JUVENCIO PALUMBO nted at: [facility] Problems (Conditions): All historical and current [...] Comm ent(s) Provider Source H/O: hypertension Active [id number] ALICIA VICK [facility] Hyperlipidemia Active [id number] JUVENCIO VICK [facility] Impaired fasting glucose Active [id number] YENY MAJOR [facility] Knee pain Active [id number] JUVENCIO VICK [facility] Radiology Reports: +/- 30 days of the encounter No Data Provided for This Section Pathology Reports: +/- 30 days of the encounter No Data Provided for This Section Encounter Notes: All associated encounter notes No Data Provided for This Section
--- OUTSIDE RECORDS SUMMARY | 2019-09-23 08:30 | XMS REPORT | Encounter Summary ---
Author Author Department of [facility] ELOY miller ALPHONSO Organization Department of [facility] Address [address] [place] [address] Phone Unavailable Care Team Providers Care Wheel Presser Name Role Phone JUVENCIO PALUMBO PCP Unavailable [...] (PPO) COMPREHE NSIVE MAJOR Jan 08, 2019 [id number] ELOY KNIGHT CODY ENT BC BS [place] PREFERRED PROVIDER ORGANIZATION (PPO) COMPREHE NSIVE MAJOR Jan 08, 2019 [id number] ELOY KNIGHT CODY ENT BCBS [place]ORIE COMPREHENSIVE MAJOR MEDICAL USD 250 Jul 10, 2015 [id number] [phone] ELOY KNIGHT PATIENT [place] COMPREHENSIVE MAJOR MEDICAL USD 250 Jul 10, 2015 [id number] [phone] ELOY KNIGHT PATIENT MEDICARE (WNR) MEDICARE (M) PART A Jan 08, 2019 PART A [id number] ELOY KNIGTH PATIENT MEDICARE (WNR) MEDICARE (M) PART A Jun 09, 2015 PART A [id number] ELOY KNIGHT PATIENT MEDICARE (WNR) MEDICARE (M) PART B Jun 09, 2015 PART B [id number] [phone] ELOY KNIGHT PATIENT [employer] [place] Jul 10, 2015 [id number] [phone] ELOY KNIGHT PATIENT [employer] PRES[employer] [place] Jan 08, 2019 [id number] ELOY KNIGHT PATIENT Selected Encounter This section includes the [place] for the Encounter. Date/Time Encounter Type Encounter Description Reason Provider Source Jul 11, 2019 08:43 AM Outpatient Encounter PRIMARY CARE/MEDICINE [facility] IHE Encounter Template Text not used by [place] Assessments - Encounter Diagnoses No Data Provided for This Section Plan of Treatment: Future Appointments (+ 6 months) and Future Tests (+/- 45 day s) No Data Provided for This Section Surgical Procedures: All associated to the encounter No Data Provided for This Section Lab Results: +/- 30 days of the encounter No Data Provided for This Section Vital Signs: All taken on the encounter date No Data Provided for This Section Immunizations: All administered on the encounter date No Data Provided for This Section Social History: Smoking Status (Most current) and Tobacco Use (All prior to enco unter date) This section includes the most current, and the historical, smoking and tobacco- related health factors from the [place] facility where the Encounter took place. Current Smoking Status This section includes the most current smoking, or tobacco -related health factor, from the [place] facility where the Encounter took place. Date/Time Current Smoking Status Comment Facility Mar 18, 2019 03:39 PM VA-TOBACCO USE CHUTE MAN NO [facility] Tobacco Use History This section includes a history of the smoking, or tobacco -related health factors, that were collected on or before the date of the Encoun ter. The data comes from the [place] facility where the Encounter took place. Date/Time Smoking Status/Tobacco Use Comment Facil ity Mar 18, 2019 03:39 PM VA-TOBACCO USE 30 YEARS OR MORE [facility] IN [place] CLINIC Mar 18, 2019 03:39 PM VA-TOBACCO USE ADVICE [place] [facility] Mar 18, 2019 03:39 PM VA-TOBACCO USE CHUTE MAN NO [place] [facility]IC Mar 18, 2019 03:39 PM VA-TOBACCO USE MED NO [place] [facility] Mar 18, 2019 03:39 PM VA-TOBACCO USE WI 30 MIN OF WAKEUP J [facility] Mar 18, 2019 03:39 PM VA-TOBACCO USER EVERY DAY [facility] Advance Directives: All historical and current No Data Provided for This Section Allergies and Adverse Reactions (ADRs): All historical and current Section Date Range: From patient's date of to the date document was create d. This section includes Allergies and Adverse Reactions (ADR s) on record with VA for the patient. The data comes from a ll [place] treatment facilities. It does not list Allergies/ADRs that were removed or entered in error. Some allergies/ADRs may be reported in t he Immunization section. Allergen Event Date Event Type Reaction(s) Severity Source PENICILLIN Apr 30, 2019 Propensity to adverse reactions to drug (diso rder) KLEBER HAMMOND PENICILLIN Jan 06, 2015 Propensity to adverse reactions to drug (disorder) Eruption [facility] 15 Medications: VA dispensed (-15 months) and Non-VA Documented (Obtained Outside A) Section Date Range: 1) prescriptions processed by a VA pharmacy in the last 15 m [facility], and 2) all medications recorded in the [place] medical record as "non-VA medic ations". Pharmacy terms refer to VA pharmacy's work on prescriptions. VA patient s are advised to take their medications as instructed by their health care team. The data comes from all [place] treatment facilities. Glossary of Pharmacy Terms:Active = A prescription that can be filled at the local [place] pharmacy.Active: On Hold = An active prescription that will not be filled until pharmacy resolves the issue.Active: Susp = An active prescription that is not scheduled to be filled yet.Clinic Order = A medication received during a visit to a [place] clinic or emergency department (currently not available).Discontinued [...] Non-VA Documented by: JUVENCIO PALUMBO nted at: [facility] ASPIRIN 81MG TAB,EC Non- VA TAKE ONE TABLET BY MOUTH ONCE A DAY Non-VA Documented by: JUVENCIO VICK nted at: [facility] ATORVASTATIN [place] 40MG TAB Non-VA TAKE ONE- HALF TABLET BY MOUTH AT BEDTIME Non-VA Docume nted by: JUVENCIO PALUMBO nted at: [facility] LORATADINE 10MG TAB Non- VA TAKE ONE TABLET BY MOUTH ONCE DAILY Non-VA Documented by: JUVENCIO PALUMBO nted at: [facility] MULTIVITAMIN/MINERALS HERBAL CAP/TAB Non-VA TAKE 1 CAP/TAB BY MOUTH ONCE DAILY Non-VA Documented by: JUVENCIO PALUMBO nted at: [facility] VALACYCLOVIR HCL 500MG TAB Non-VA TAKE ONE TABLET BY MOUTH N on-VA Documented by: JUVENCIO PALUMBO nted at: [facility] Problems (Conditions): All historical and current Section Date Range: From patient's date of to the date document was create d. This section includes a list of Problems (Conditions) know n to VA for the patient. It includes both active and inacti ve problems (conditions). The data comes from all [place] treatment facilities. Problem Status Problem Code Date of Onset Date of Resolution Comm ent(s) Provider Source H/O: hypertension Active [id number] ALICIA VICK [facility] Hyperlipidemia Active [id number] JUVENCIO VICK [facility] Impaired fasting glucose Active [id number] YENY MAJOR [facility] Knee pain Active [id number] JUVENCIO VICK [facility] Radiology Reports: +/- 30 days of the encounter No Data Provided for This Section Pathology Reports: +/- 30 days of the encounter No Data Provided for This Section Encounter Notes: All associated encounter notes This section contains the clinical notes associated to the Encounter. Date/Time Encounter Note(s) Provider Source Jul 11, 2019 08:44 AM NONVA REPORT: LOCAL TITLE: OUTSIDE RECORDS/REPORTS STANDARD TITLE: NONVA REPORT DATE OF NOTE: JUL 11, 2019@08:44 ENTRY DATE: JUL 11, 2019@08:45:03 AUTHOR: CRISTINA ALEGRIA EXP COSIGNER: URGENCY: STATUS: COMPLETED Exam/Procedure/Description: Gen. surgery exam notes [facility] Date of Exam/Procedure: 06/11/2019 Patient was seen for non-recurrent unilateral inguinal hernia without obstruction or gangrene and umbilical hernia without obstruction and without gangrene. Assessment and plan is as follows: Patient presented with symptomatic left inguinal hernia and minimal symptomatic umbilical hernia. No heavy lifting is recommended. Plan is for left inguinal hernia repair with mesh and open umbilical hernia repair. Full exam notes available in JOVANNA /balbir/ CRISTINA ALEGRIA APN [facility] Signed: 07/11/2019 08:47 Receipt Acknowledged By: 07/11/2019 09:27 /balbir/ JUVENCIO PARKS DO PRIMARY CARE PHYSICIAN CRISTINA ALEGRIA [facility]
--- OUTSIDE RECORDS SUMMARY | 2019-09-23 08:31 | XMS REPORT | Encounter Summary ---
Author Author Department of [facility] ELOY miller ALPHONSO Organization Department of [facility] Address [address] [place] [address] Phone Unavailable Care Team Providers Care Ultrasonic Cleaner Name Role Phone JUVENCIO PALUMBO PCP Unavailable [...] (PPO) COMPREHE NSIVE MAJOR Jan 08, 2019 [id number] ELOY KNIGHT CODY ENT BC BS [place] PREFERRED PROVIDER ORGANIZATION (PPO) COMPREHE NSIVE MAJOR Jan 08, 2019 [id number] ELOY KNIGHT CODY ENT BCBS [place] COMPREHENSIVE MAJOR MEDICAL USD 250 Jul 10, 2015 [id number] [phone] ELOY KNIGHT PATIENT [place]BS [place] COMPREHENSIVE MAJOR MEDICAL USD 250 Jul 10, 2015 [id number] [phone] ELOY KNIGHT PATIENT MEDICARE (WNR) MEDICARE (M) PART A Jan 08, 2019 PART A [id number] [phone] ELOY KNIGHT PATIENT MEDICARE (WNR) MEDICARE (M) PART A Jun 09, 2015 PART A [id number] ELOY KNIGHT PATIENT MEDICARE (WNR) MEDICARE (M) PART B Jun 09, 2015 PART B [id number] [phone] ELOY KNIGHT PATIENT [employer] PRESCRIPTION [place]BS [place] Jul 10, 2015 [id number] [phone] ELOY KNIGHT PATIENT [employer] [place]BS [place] Jan 08, 2019 [facility] [id number] ELOY KNIGHT PATIENT Selected Encounter This section includes the information on record at [place] for the Encounter. Date/Time Encounter Type Encounter Description Reason Provider Source Apr 30, 2019 10:00 AM OFFICE/OUTPATIENT VISIT EST PRIMARY CARE/M EDICINE ICD-10-CM I10. Essential (primary) hypertension with Provider Comments: Essential (Primary) Hypertension JUVENCIO PALUMBO [facility] IHE Encounter Template Text not used by [place] Assessments - Encounter Diagnoses This section includes the primary and secondary diag noses documented for the Encounter. Date/Time Primary/Secondary Diagnosis Diagnosis Name Provider Source Apr 30, 2019 10:38 AM PRIMARY Essential (primary) hypertension JUWAN CULVER [facility] Apr 30, 2019 10:38 AM PRIMARY Essential (primary) hypertension CULVERJUWAN [facility] Apr 30, 2019 10:38 AM SECONDARY Chronic obstructiv e pulmonary disease, unspecified CULVER,JUWAN BURNETT [facility] Apr 30, 2019 10:38 AM SECONDARY Chronic obstructiv e pulmonary disease, unspecified CULVER,JUWAN GRACEIN [facility] Apr 30, 2019 10:38 AM SECONDARY Hyperlipidemia, unspecified CULVER ,JUWAN CAMPLIN [facility] Apr 30, 2019 10:38 AM SECONDARY Hyperlipidemia, unspecified CULVER ,JUWAN TUTUPLIN [facility] Apr 30, 2019 10:38 AM SECONDARY Other idiopathic p eripheral autonomic neuropathy CULVERJUWANPLIN [facility] Apr 30, 2019 10:38 AM SECONDARY Other idiopathic p eripheral autonomic neuropathy CULVER,JUWAN GRACEIN [facility] Apr 30, 2019 10:38 AM SECONDARY Tobacco use CULVER,JUWAN CAMPLI N [facility] Apr 30, 2019 10:38 AM SECONDARY Tobacco use CULVER,JUWAN CAMPLI N [facility] Apr 30, 2019 10:38 AM SECONDARY Unil inguinal enoch ia, w/o obst or gangr, not spcf as recur JUWAN CULVER [facility] Apr 30, 2019 10:38 AM SECONDARY Unil inguinal enoch ia, w/o obst or gangr, not spcf as reckate [facility] Plan of Treatment: Future Appointments (+ 6 months) and Future Tests (+/- 45 day s) The Plan of Treatment section includes future care activities for the patient fr om all [place] treatment facilities. This section includes future appointments [...] the Encounter. The data comes from all [place] treatment [facility]. Test Date/Time Test Type Test Details Facility Name Apr 26, 2019 12:00 AM Laboratory - Chemistry Order URINALYSIS UR INE SP ONE-TIME [facility] Surgical Procedures: All associated to the encounter No Data Provided for This Section Lab Results: +/- 30 days of the encounter This section includes the Chemistry and Hematology Lab R esults on record with [place] for the patient. Radiology Reports and Pathology Report s are provided separately, in subsequent sections. Lab Results This section contains the Chemistry/Hematology Results patrice t were resulted 30 days before or 30 days after the date of the Encounter. Date/Time Source Result Type Result - Unit Interpretation Reference Range Comment May 10, 2019 04:49 PM [facility] OCCULT BLOOD FIT x1 SCREE N Specimen Type: FECES Comment: No collection date noted OCCULT BLOOD FIT x1 SCREEN Negative NEG ATIVE Apr 30, 2019 08:24 AM [facility] B12 Specimen Type: SERUM Comment: ~ADD-ON TO BLOOD ALREADY DRAWN VITAMIN B12 (FV) 805 pg/mL 180-914 Apr 30, 2019 08:24 AM [facility] PSA (FV) Specimen Type: SERUM Comment: ~ADD-ON TO BLOOD ALREADY DRAWN PSA (FV) 0.34 ng/mL 0.0-4.0 Apr 30, 2019 08:24 AM [facility] TSH (FV) Specimen Type: SERUM Comment: ~ADD-ON TO BLOOD ALREADY DRAWN TSH (FV) 1.95 mcIU/mL 0.45-5.33 Apr 30, 2019 08:23 AM [facility] CBC Specimen Type: BLOOD No comment [...] K/cmm 0.0-0.2 Apr 30, 2019 08:23 AM [facility] LIPID PROFILE Specimen Type: SERUM No comment entered. CHOLESTEROL, TOTAL (FV) 183 mg/dL 118-20 0 TRIGLYCERIDE (FV) 55 mg/dL <200 LDL CHOLESTEROL (CALCULATED) 109 HDL CHOLESTEROL (FV) 63 mg/dL >40 Apr 30, 2019 08:23 AM [facility] RENAL+LIVER PROFILE Specimen Type: SERUM No [...] mg/dL .61-1.24 Apr 30, 2019 08:23 AM [facility] C ANTIBODY HEPATITIS Specimen Type: SERUM [...] Nonrea ctive Apr 30, 2019 08:23 AM [facility] HIV Ag/Ab COMBO Specimen Type: SERUM [...] Signs: All taken on the encounter date This section contains inpatient and outpatient Vital Signs collected on the date of the Encounter. Date/Time Temperature Pulse Blood Pressure Respiratory Rate SP02 Pa in Height Weight Body Mass Index Source Apr 30, 2019 10:25 AM 137/87 mm[Hg] 0 [facility] Apr 30, 2019 09:50 AM 98.1 F 87 /min 154/90 mm[Hg] 16 /min 97 % 0 66 in 159 lb 26 [facility] Immunizations: All administered on the encounter date No Data Provided for This Section Social History: Smoking Status (Most current) and Tobacco Use (All prior to enco unter date) This section includes the most current, and the historical, smoking and tobacco- related health factors from the [facility] facility where the Encounter took place. Current Smoking Status This section includes the most current smoking, or tobacco -related health factor, from the VA facility where the Encounter took place. Date/Time Current Smoking Status Comment Facility Mar 18, 2019 03:39 PM VA-TOBACCO USE TRAVELING SALES REPRESENTATIVE NO [facility] Tobacco Use History This section includes a history of the smoking, or tobacco -related health factors, that were collected on or before the date of the Encoun ter. The data comes from the VA facility where the Encounter took place. Date/Time Smoking Status/Tobacco Use Comment Facil ity Mar 18, 2019 03:39 PM VA-TOBACCO USE 30 YEARS OR MORE [facility] Mar 18, 2019 03:39 PM VA-TOBACCO USE ADVICE PLIN [facility] Mar 18, 2019 03:39 PM VA-TOBACCO USE TRAVELING SALES REPRESENTATIVE NO PLIN [facility] Mar 18, 2019 03:39 PM VA-TOBACCO USE MED NO [facility] Mar 18, 2019 03:39 PM VA-TOBACCO USE WI 30 MIN OF WAKEUP J OPLIN [facility] CLINIC Mar 18, 2019 03:39 PM VA-TOBACCO USER EVERY DAY [facility] Advance Directives: All historical and current No Data Provided for This Section Allergies and Adverse Reactions (ADRs): All historical and current Section Date Range: From patient's date of to the date document was create d. This section includes Allergies and Adverse Reactions (ADR s) on record with VA for the patient. The data comes from a [facility] treatment facilities. It does not list Allergies/ADRs that were removed or entered in error. Some allergies/ADRs may be reported in t he Immunization section. Allergen Event Date Event Type Reaction(s) Severity Source PENICILLIN Apr 30, 2019 Propensity to adverse reactions to drug (diso rder) KLEBER HAMMOND PENICILLIN Jan 06, 2015 Propensity to adverse reactions to drug (disorder) Eruption [facility] 15 Medications: VA dispensed (-15 months) and Non-VA Documented (Obtained Outside A) Section Date Range: 1) prescriptions processed by a [place] pharmacy in the last 15 m [facility], and 2) all medications recorded in the VA medical record as "non-VA medic ations". Pharmacy terms refer to VA pharmacy's work on prescriptions. VA patient s are advised to take their medications as instructed by their health care team. The data comes from all [place] treatment facilities. Glossary of Pharmacy Terms:Active = A prescription that can be filled at the local [place] pharmacy.Active: On Hold = An active prescription that will not be filled until pharmacy resolves the issue.Active: Susp = An active prescription that is not scheduled to be filled yet.Clinic Order = A medication received during a visit to a [place] clinic or emergency department (currently not available).Discontinued [...] may be a prescription from either the [place] or other providers that was filled outside the [place]. Or, it may be an over the [...] Non-VA Documented by: JUVENCIO PALUMBO nted at: [facility] ASPIRIN 81MG TAB,EC Non- VA TAKE ONE TABLET BY MOUTH ONCE A DAY Non-VA Documented by: JUVENCIO VICK Docume nted at: [facility] ATORVASTATIN CA 40MG TAB Non-VA TAKE ONE- HALF TABLET BY MOUTH AT BEDTIME Non-VA Docume nted by: JUVENCIO PALUMBO nted at: [facility] LORATADINE 10MG TAB Non- VA TAKE ONE TABLET BY MOUTH ONCE DAILY Non-VA Documented by: JUVENCIO PALUMBO nted at: [facility] MULTIVITAMIN/MINERALS HERBAL CAP/TAB Non-VA TAKE 1 CAP/TAB BY MOUTH ONCE DAILY Non-VA Documented by: JUVENCIO PALUMBO nted at: [facility] VALACYCLOVIR HCL 500MG TAB Non-VA TAKE ONE TABLET BY MOUTH N on-VA Documented by: JUVENCIO PALUMBO nted at: [facility] Problems (Conditions): All historical and current Section Date Range: From patient's date of to the date document was create d. This section includes a list of Problems (Conditions) know n to VA for the patient. It includes both active and inacti ve problems (conditions). The data comes from all [place] treatment facilities. Problem Status Problem Code Date of Onset Date of Resolution Comm ent(s) Provider Source H/O: hypertension Active [id number] ALICIA VICK [facility] Hyperlipidemia Active [id number] JUVENCIO VICK [facility] Impaired fasting glucose Active [id number] YENY MAJOR [facility] Knee pain Active [id number] JUVENCIO VICK [facility] Radiology Reports: +/- 30 days of the encounter No Data Provided for This Section Pathology Reports: +/- 30 days of the encounter No Data Provided for This Section Encounter Notes: All associated encounter notes This section contains the clinical notes associated to the Encounter. Date/Time Encounter Note(s) Provider Source Jul 23, 2019 12:33 PM PHYSICIAN LETTERS: LOCAL TITLE: RESULTS LETTER STANDARD TITLE: PHYSICIAN LETTERS DATE OF NOTE: JUL 23, 2019@12:33 ENTRY DATE: JUL 23, 2019@12:33:58 AUTHOR: JUVENCIO PALUMBO COSIGNER: URGENCY: STATUS: COMPLETED [facility] ([facility]) [address] [place] [address] JUL 23, 2019 ELOY FREITASFORD [address] [place] [address] Dear Mattoon Patient: I am writing to inform you of the results of the test(s) you had done during or shortly after your last visit at the [facility]. The tests below were performed and are satisfactory unless otherwise noted. Collection time: Apr 30, 2019@08:23 Test Name Result Units Range --------- ------ ----- ----- WBC (FV) 8.9 K/cmm 3.8 - 10.6 RBC (FV) 5.14 M/cmm 4.4 - 5.9 HGB (FV) 17.0 g/dL 13 - 18 HCT (FV) 49.8 % 40 - 52 MCV (FV) 97.0 fL 80 - 100 MCH (FV) 33.1 pg 26 - 34 MCHC (FV) 34.1 g/dL 32 - 36 RDW (FV) 12.9 % 11.5 - 14.5 PLT (FV) 218 K/cmm 150 - 440 --------- ------ ----- ----- GLUCOSE (FV) 109 mg/dL 70 - 110 UREA NITROGEN (FV) 18 mg/dL 6 - 20 CREATININE (FV) 0.85 mg/dL .61 - 1.24 eGFR >60 SODIUM (FV) 137 mmol/L 136 - 145 POTASSIUM (FV) 4.1 mmol/L 3.5 - 5.1 CHLORIDE (FV) 105 mmol/L 98 - 107 CO2 (FV) 25 mmol/L 21 - 32 CALCIUM (FV) 8.9 mg/dL 8.9 - 10.3 TOTAL PROTEIN (FV) 6.8 g/dL 6.1 - 7.9 ALBUMIN (FV) 3.9 g/dL 3.4 - 5.0 AST (FV) 31 U/L 15 - 37 ALT (FV) 30 U/L 0 - 63 ALK. PHOS. (FV) 64 U/L 32 - 126 TOTAL BILIRUBIN (FV) 0.57 mg/dL 0.3 - 1.2 CHOLESTEROL, TOTAL (FV) 183 mg/dL 118 - 200 TRIGLYCERIDE (FV) 55 mg/dL Ref: <=200 HDL CHOLESTEROL (FV) 63 mg/dL Ref: >=40 LDLc 109 PSA (FV) 0.34 ng/mL 0.0 - 4.0 TSH (FV) 1.95 mcIU/mL 0.45 - 5.33 VITAMIN B12 (FV) 805 pg/mL 180 - 914 --------- ---- -- ----- ----- C ANTIBODY HEPATITIS Nonreactive Ref: Nonreactive HIV Ag/Ab COMBO Nonreactive Ref: Nonreactive The results of your lab were very good. Please continued to diet and exercise as much as you can. Please practice social distancing and good handwashing technique as the coronavirus pandemic is for real. Sincerely, JUVENCIO PALUMBO - PHYSICIAN JUVENCIO PALUMBO [facility] Jul 23, 2019 12:32 PM PHYSICIAN LETTERS: LOCAL TITLE: RESULTS LETTER STANDARD TITLE: PHYSICIAN LETTERS DATE OF NOTE: JUL 23, 2019@12:32 ENTRY DATE: JUL 23, 2019@12:32:51 AUTHOR: JUVENCIO PALUMBOIGNER: URGENCY: STATUS: COMPLETED [facility] ([facility]) [address] [place] [address] JUL 23, 2019 ELOY KNIGHT [address], [place] [address] Dear Mattoon Patient: I am writing to inform you of the results of the test(s) you had done during or shortly after your last visit at the [facility]. The tests below were performed and are satisfactory unless otherwise noted. - Stool Hemoccult Cards (No blood in stool) Comment: there was no blood in your stool Sincerely, JUVENCIO PALUMBO - PHYSICIAN JUVENCIO PALUMBO [facility] Apr 30, 2019 10:35 AM MEDICATION MGT NOTE: LOCAL TITLE: MEDICATION RECONCILIATION (PROVIDER) STANDARD TITLE: MEDICATION MGT NOTE DATE OF NOTE: APR 30, 2019@10:35 ENTRY DATE: APR 30, 2019@10:35:54 AUTHOR: JUVENCIO PALUMBOIGNER: URGENCY: STATUS: COMPLETED Medication Reconciliation COMPLETED (Outpatient): NO medication additions, deletions, dosage changes OR duplications were identified. Copy of Medication Reconciliation note and Patient Medication Information Cover Sheet provided to and reviewed with patient/caregiver. ADVERSE REACTIONS/ALLERGY: PENICILLIN Active Outpatient Medications (excluding Supplies): Active Non-VA Medications Status === 1) Non-VA AMLODIPINE 10MG TAB 5MG MOUTH ONCE DAILY ACTIVE 2) Non-VA ATORVASTATIN 40MG TAB 20MG MOUTH AT BEDTIME ACTIVE 3) Non-VA LORATADINE 10MG TAB 10MG MOUTH ONCE DAILY ACTIVE 4) Non-VA VALACYCLOVIR HCL 500MG UD TAB 500MG MOUTH ACTIVE 5) Non-VA VITAMINS-MULTIPLE/BROMELIAN 1 CAP/TAB MOUTH ACTIVE ONCE DAILY No Active Remote Medications for this patient /balbir/ JUVENCIO PALUMBO Signed: 04/30/2019 10:38 JUVENCIO PALUMBO [facility] Apr 30, 2019 10:31 AM ADMINISTRATIVE NOTE: LOCAL TITLE: HIPAA PRIVACY RELEASE STANDARD TITLE: ADMINISTRATIVE NOTE DATE OF NOTE: APR 30, 2019@10:31 ENTRY DATE: APR 30, 2019@10:31:07 AUTHOR: LY DUNHAM EXP COSIGNER: URGENCY: STATUS: COMPLETED Verbal consent obtained. Date: Apr This release is in effect for a period of 1 year. The following type of information may be discussed: appointment information, lab results, plan of care, treatment options, test results, condition , diagnosis, list of medications, address/phone number/emergency contact in case home care is to be provided People authorized to receive above information: Yareli Spouse I give permission to provide medical information, my home address, and my phone number in the coordination of my home health care: NO I give permission for message (including medical information) to be left on my answering machine: Yes VLER Release of Info (CARMITA) (Form 10-0206): Declined /balbir/ LY DUNHAM RETAIL ADVERTISING SALES MANAGER PRIMARY [facility] [employer] Signed: 04/30/2019 10:31 LY DUNHAM [facility] Apr 30, 2019 10:31 AM NURSING NOTE: LOCAL TITLE: TUBERCULOSIS SCREENING STANDARD TITLE: NURSING NOTE DATE OF NOTE: APR 30, 2019@10:31 ENTRY DATE: APR 30, 2019@10:32 AUTHOR: LY DUNHAM EXP COSIGNER: URGENCY: STATUS: COMPLETED Tuberculosis Screen (Nurse): Patient received Tuberculosis Screening at this encounter. Patient has never been treated for Tuberculosis. Patient has never lived with anyone who was being treated for Tuberculosis. Patient has never had a positive TB skin test. Patient reports no cough at this time. /trudi DUNHAM LPN [facility]IMARY [facility] [employer] Signed: 04/30/2019 10:32 VERNONTUTULY E [facility] Apr 30, 2019 10:30 AM NURSING NOTE: LOCAL TITLE: LEARNING EVALUATION STANDARD TITLE: NURSING NOTE DATE OF NOTE: APR 30, 2019@10:30 ENTRY DATE: APR 30, 2019@10:30:15 AUTHOR: LY DUNHAM EXP COSIGNER: URGENCY: STATUS: COMPLETED LEARNING EVALUATION Patient is able to read. Patient is able to write. Patient reports college education level. Patient learns best by doing. Patient learns best by hearing. Patient learns best by reading. CHARACTERISTICS of barriers/limitations to learning: Physical Barriers/Limitations: Decreased vision. Comment: glasses Cognitive Barriers/Limitations: No cognitive barriers/limitations. Emotional Barriers/Limitations: No emotional barriers/limitations. Language Barriers/Limitations: No language barriers/limitations. COMMUNICATION NEEDS: Patient had no communication needs identified. Patient has good knowledge of condition. Patient is motivated to learn. Patient needs education/information regarding how/when to seek further care. SYNAGOGUE PREFERENCE: No change to previously reported episcopal preference: UNKNOWN/NO PREFERENCE. Patient reports no cultural/episcopal/spiritual health preferences. /trudi DUNHAM RETAIL ADVERTISING SALES MANAGER PRIMARY [facility] [employer] [facility] Signed: 04/30/2019 10:30 VERNONGERALDLY E [facility] Apr 30, 2019 10:19 AM PRIMARY CARE PHYSICIAN NOTE: LOCAL TITLE: PRIMARY CARE/PROVIDER STANDARD TITLE: PRIMARY CARE PHYSICIAN NOTE DATE OF NOTE: APR 30, 2019@10:19 ENTRY DATE: APR 30, 2019@10:19:15 AUTHOR: JUVENCIO PALUMBO EXP COSIGNER: URGENCY: STATUS: COMPLETED SUBJECTIVE:Mattoon presents for initial OV with fasting labs to establish care. NonVA Providers PCP Dr. 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 BLOOD PRODUCTS OR TRANSFUSIONS RECEIVED: negative DRUG ALLERGIES: Penicillin FOOD ALLERGIES: None Immunizations:Up to date Concerns: Would like to see Neurologist due to Neuropathy Aspirin:Denies Depression:Negative Screening PTSD:Negative HIPAA:Yareli Spouse LE:College doing glasses glasses OD:yes MST:Denies BP: 154/90 (04/30/2019 09:50) Pain: 0 (04/30/2019 09:50) Height: 66 in [167.6 cm] (04/30/2019 09:50) Weight: 159 lb [72.3 kg] (04/30/2019 09:50) Pulse: 87 (04/30/2019 09:50) Respiration: 16 (04/30/2019 09:50) Temperature: 98.1 F [36.7 C] (04/30/2019 09:50) BMI: APR 30, 2019@09:50:24 25.7 04/30/19 @ 0950 PULSE OXIMETRY: 97 ROS: CONSTITUTIONAL/WEIGHT: No major weight change in past year. EYES: No known problems. HEAD, EARS, NOSE, MOUTH, THROAT: Reports hearing normal, nose & sinuses normal, swallowing normal. CARDIOVASCULAR: No chest pain or edema. no palpatations RESPIRATORY: No SOB or cough. GI: No indigestion, stooling normal. : Stream normal; denies nocturia. MUSCULOSKELETAL: No pain or dysfunction. SKIN: Denies rash, open wounds or nonhealing sores. NEUROLOGIC: No headaches, no history of head injury or seizure. No history TIA or stroke PSYCHIATRIC: Normal. (good) ENDOCRINE: Denies excessive thirst, urination or weight loss. Denies abnormal thyroid. HEMATOLOGIC/LYMPHATIC: No anemia or other blood dyscrasia. EXAM: VITALS: DATE/TIME TEMP PULSE RESP BP PAIN WEIGHT 04/30/19 @ 0950 98.1 87 16 154/90 0 159 PHYSICAL EXAM: GENERAL APPEARANCE: A 68 year old MALE, in NAD. SKIN: WARM, DRY HEENT: Normocephalic, atraumatic. Extra ocular motions appear intact. Conjunctiva non-icteric. Periorbital areas with no edema or redness. Oropharynx clear. Ear canals clear. NECK: Trachea midline. NO JVD. No carotid bruits. CV: RRR, PMI not displaced. S1 and S2 normal. No gallop or rub. Murmur: none. PULMONARY: CTA with no wheezes or rhonchi, rales noted GI: Soft, nontender with normal bowel sounds. NO organomegaly or masses. EXT: No cyanosis, clubbing, edema. Pedal pulses present, gross visual inspection wnl. Full ROM with all extremities. Posture: erect/upright, thoracic kyphosis Gait: smooth, PERIPHERAL PULSES 2+ BILAT. NEUROLOGIC: Awake, alert, and oriented x 3. Normal mood and affect. CRANIAL NERVES: II-XII intact, Finger to nose normal. No focal deficits noted. SKIN: Warm, dry with normal turgor for age. No dermatitis. Normal color with capillary refill within 2 seconds. Genitalia: Circumsized testes , direct inguinal hernia to left side, testis descened without tenderness dGLUCOSE: 109 dALBUMIN: 3.9 dAST: 31 dBILIRUBIN, TOTAL: 0.57 dCHLORIDE: 105 dCHOLESTEROL, TOTAL: 183 dPROTEIN, TOTAL: 6.8 dSODIUM #3: 137 dPOTASSIUM #3: 4.1 dCO2 #3: 25 UREA NITROGEN (MARITZA): 18 CALCIUM (MARITZA): 8.9 TRIGLYCERIDE (MARITZA): 55 ALT (MARITZA)2: 30 ALP (MARITZA)2: 64 LDL CHOL (CALC): 109 eGFR (09-19-06): 90 CREATININE (04-15-08) FAV: 0.85 HDL, CHOLESTEROL (07-15-10): 63 RDW: 12.9 MPV: 7.6 HCT (08-22-08): 49.8 HGB (08-22-08): 17.0 PLT (08-22-08): 218 WBC (07-09-09): 8.9 RBC (07-09-09): 5.14 MCV (07-09-09): 97.0 MCH (07-09-09): 33.1 MCHC (07-09-09): 34.1 NE% (07-09-09): 66.9 NE# (07-09-09): 6.0 LY% (07-09-09): 20.7 LY# (07-09-09): 1.8 MO% (07-09-09): 7.9 MO# (07-09-09): 0.7 EO% (07-09-09): 3.7 EO# (07-09-09): 0.3 BA% (07-09-09): 0.8 BA# (07-09-09): 0.1 ASSESSMENT: No active problems in computerized problem list as of 04/30/2019@10:19 The patients medical condition(s), new medication(s), and common side effects, were discussed. The patient expressed understanding and is aware to contact us if any further questions. PLAN: 1. RTC in 12 months with CBC, renal/live r, lipid, UA, PSA, A1C, microalbumin 2. refer to surgeon at [facility] 3. 4. PATIENT EDUCATION: (x)Diet and Exercise: Heart healthy diet , Moderate exercise such as walking 30 minutes 5 times per week (x)Exercise: 20 minutes or to capacity; four days per week minimum. (x)Medications: benefits and side effect s. (x)Lab: reviewed with patient. (x)Tobacco cessation: advised and suppor leonel. /balbir/ JUVENCIO PALUMBO Signed: 04/30/2019 10:35 JUVENCIO PALUMBO [facility] Apr 30, 2019 09:53 AM PRIMARY CARE NURSING NOTE: LOCAL TITLE: PRIMARY CARE/NURSE STANDARD TITLE: PRIMARY CARE NURSING NOTE DATE OF NOTE: APR 30, 2019@09:53 ENTRY DATE: APR 30, 2019@09:53:24 AUTHOR: LY DUNHAM COSIGNER: URGENCY: STATUS: COMPLETED PRIMARY CARE/NURSE Has ADDENDA SUBJECTIVE:Mattoon presents for initial OV with fasting labs to establish care. NonVA Providers PCP Dr. 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 BLOOD PRODUCTS OR TRANSFUSIONS RECEIVED: negative DRUG ALLERGIES: Penicillin FOOD ALLERGIES: None Immunizations:Up to date Concerns: Would like to see Neurologist due to Neuropathy Aspirin:Denies Depression:Negative Screening PTSD:Negative HIPAA:Yareli Spouse LE:College doing glasses glasses OD:yes MST:Toneies BP: 154/90 (04/30/2019 09:50) Pain: 0 (04/30/2019 09:50) Height: 66 in [167.6 cm] (04/30/2019 09:50) Weight: 159 lb [72.3 kg] (04/30/2019 09:50) Pulse: 87 (04/30/2019 09:50) Respiration: 16 (04/30/2019 09:50) Temperature: 98.1 F [36.7 C] (04/30/2019 09:50) BMI: APR 30, 2019@09:50:24 25.7 04/30/19 @ 0950 PULSE OXIMETRY: 97 Mental Status: alert and oriented Are there things in your life that worry you or cause you stress? NO Depression: No Suicidal: No Accompanied By: Alone On Arrival: Ambulatory Mobility changes in the past 3 months? Yes, Specify: neuropathy Do you have or use an assistive device? No Has patient had fall(s) in last 3 months? No, patient reports no fall(s) in last 3 months. Potential risks for falls identified. No Has the patient traveled outside the [place] within the past 30 days? No If yes, where has the patient traveled? Psychosocial Status: Indication of suspected abuse, neglect, or exploitation? No Collection DT Specimen Test Name Result Units Ref Range 04/30/2019 08:23 SERUM LDLc 109 OTHER MEDICATIONS (HERBALS, OTC's, etc): No Active Outpatient Medications (including Supplies): No Medications Found No Active Remote Medications for this patient Avg Risk Colorectal Cancer Screen: AVERAGE RISK colorectal cancer screening is due based on information available to this clinical reminder FOBT/FIT (Fecal Immunochemical Testing) has been ordered. See order tab for details. HIV Screening : Patient has given verbal consent for HIV antibody testing, and written educational materials have been provided. An order for an HIV Antibody test has been entered - see orders tab. Hepatitis C Testing: Patient has given verbal consent for HCV antibody testing. An HCV lab test has been ordered - see orders tab. /balbir/ LY DUNHAM LPN [facility] Signed: 04/30/2019 10:10 04/30/2019 ADDENDUM STATUS: COMPLETED Pneumococcal PPSV23 (Pneumovax): Prior pneumococcal vaccination The patient has previously received the pneumococcal polysaccharide vaccine PPSV23 (Pneumovax). Date: February 04, 2016 Location: [facility] Primary/HealthCare Language (Nurse): Primary Language: Patient's primary language: Malaysian Preferred language for healthcare discussion: Preferred language for healthcare discussion is Malaysian. Patient does not have a designated advocate (legal guardian, surrogate decision-maker or legally authorized outside medical sales representative). LEARNING EVALUATION Patient is able to read. Patient is able to write. Patient reports college education level. Patient learns best by doing. Patient learns best by hearing. Patient learns best by reading. CHARACTERISTICS of barriers/limitations to learning: Physical Barriers/Limitations: Decreased vision. Comment: glasses Cognitive Barriers/Limitations: No cognitive barriers/limitations. Emotional Barriers/Limitations: No emotional barriers/limitations. Language Barriers/Limitations: No language barriers/limitations. COMMUNICATION NEEDS: Patient had no communication needs identified. Patient has good knowledge of condition. Patient is motivated to learn. Patient needs education/information regarding how/when to seek further care. SYNAGOGUE PREFERENCE: No change to previously reported episcopal preference: UNKNOWN/NO PREFERENCE. Patient reports no cultural/episcopal/spiritual health preferences. Alcohol Use Screen (AUDIT-C): Alcohol Screen: SCREEN FOR ALCOHOL (AUDIT-C) An alcohol screening test (AUDIT-C) was POSITIVE (score=4). At this score level (3 or 4 for women, 4 for men), no additional action is required but brief alcohol counseling would be beneficial. 1. How often did you have a drink containing alcohol in the past year? Four or more times a week 2. How many drinks containing alcohol did you have on a typical day when you were drinking in the past year? 1 or 2 3. How often did you have six or more drinks on one occasion in the past year? Never Patient had a negative AUDC score and does not require a follow-up Influenza Immunization (Nurse): Influenza Immunization Patient declined influenza immunization at this time. Comment: declines Herpes Zoster (Shingles) Vaccine: The patient declines to receive the herpes zoster vaccine. Tdap Immunization: The patient declines to receive the recommended dose of Tetanus, Diphtheria, Pertussis vaccine (Tdap). Food/Drug Interaction Ed (Nurse): Patient received food/drug interactions education at this encounter. Level of Understanding: Good Lencho Skin Evaluation (Outpatient): -Patient does not use wheelchair. -Patient is not confined to bed. -Patient does not require assistance for transfers/position changes. -Patient does not use a medical scribe that fits over skin (e.g., artificial limb, braces, splint, condom catheter) -Patient currently has no open wounds. -No history of pressure ulcer(s). -Patient currently has no pressure ulcer(s). Lencho Skin Evaluation completed in the last year and Score >18 EDUCATION: Pressure Ulcer education not indicated at this time. Repeat BP if >139/89 (Nurse): Patient blood pressure recorded. 137/87 Daily Aspirin (Nurse): Patient does not take daily aspirin. Nutrition/Health Risk Scrn (Nurse): NUTRITION AND HEALTH RISK SCREEN: Has patient had any unintentional weight loss of more than 10 pounds in the last 3 months? Patient reports no unintentional weight loss >10 lbs in last three months. LDL greater than 130 mg/dl within last 6 months? No, patient's LDL is NOT greater than 130 mg/dl Glyco Hgb A1C results in the last 6 months No, patient has no Glyco Hgb A1c lab on file in last 6 months. Is patient on warfarin ? No, patient is NOT on warfarin * * * * There were no "YES" responses to the above screening questions * * * * Pain Evaluation (Nurse): PAIN EVALUATION: Clinic Location: Primary Care Patient reports no pain present today. Pain Score: 0 Advance Directive Screen (Nurse): "Your Rights Regarding Advance Directives" was discussed and/or provided to patient/caregiver. ADVANCE DIRECTIVE SCREEN COPY of Advance Directive NOT on file in patient's medical record. Patient does not wish to create an Advance Directive. Information provided to patient. Organ Donor (Nurse): Patient states he/she is currently registered with a Regional Organ Recovery Agency. Tobacco Use Screening: The patient uses tobacco every day. The patient uses tobacco within 30 minutes of waking up. The patient has been smoking or using tobacco for thirty years or more. Patient was advised to quit smoking and/or using tobacco. Discussion with patient included: - Quitting smoking or tobacco use is one of the most important things you can do to protect and improve your health and [place] has the resources to support you. - Set a quit date when you are ready to quit. - Get support from your family and friends. - Review any past quit attempts- What helped? What didn't? - On the day you plan to quit, get rid of all cigarettes and tobacco products from your home, car or work. - Using a combination of behavioral counseling or other support strategies and FDA-approved cessation medications is the most effective way to ensure success in quitting. Patient was offered Behavioral Counseling and other support strategies to assist with quitting. Discussion with patient included: - Behavioral counseling or other support strategies greatly increases your chances of successfully quitting smoking or tobacco use by helping you develop a quit plan and providing support and other strategies to make behavioral changes to help you quit. - [place] has a number of behavioral counseling options to help you with quitting, including: * Provide information about the facility smoking or tobacco use treatment options or clinics * [place]'s national quitline, 0-545-BSUE-VET, with counseling available Monday-Monday The patient was not interested in receiving additional information about how to use the treatment options discussed. Patient was offered FDA-approved cessation medications. Discussion with patient included: - Medications for Nicotine replacement therapy such as the patch, gum or lozenge, and other medications such as varenicline or bupropion, can play an important role in the initial weeks and months after you quit smoking or tobacco use. - Medications help with cravings and withdrawal symptoms and they greatly increase your chances of successfully quitting. The patient was not interested in a prescription for tobacco cessation medications. PTSD Screening: PC-PTSD-5+I9 PTSD Screening Score: 0 The score for this administration is 0, which indicates a NEGATIVE screen for PTSD in the past month. Suicide Screening Score: 0 The results of this administration revealed no suicidal ideation over the last 2 weeks, which indicates a NEGATIVE primary screen for Risk of Suicide. Questions 1-5 reference a time frame of the past month Sometimes things happen to people that are unusually or especially frightening, horrible or traumatic. Have you ever experienced this kind of event? NO 1. Had nightmares about the event(s) or thought about the event(s) when you did not want to? Response not required due to responses to other questions. 2. Tried hard not to think about the event(s) or went out of your way to avoid situations that reminded you of the event(s)? Response not required due to responses to other questions. 3. Been constantly on guard, watchful, or easily startled? Response not required due to responses to other questions. 4. [place] numb or detached from people, activities, or your surroundings? Response not required due to responses to other questions. 5. [place] guilty or unable to stop blaming yourself or others for the event(s) or any problems the event(s) may have caused? Response not required due to responses to other questions. 6. Over the last 2 weeks, how often have you been bothered by thoughts that you would be better off or of hurting yourself in some way? Not at All Depression Screening: PHQ-2+I9 Depression Screening Score: 0 The score on this administration is 0, which indicates a negative screen on the Depression Scale over the past two weeks. Suicide Screening Score: 0 The results of this administration indicates a NEGATIVE primary screen for Risk of Suicide over the last 2 weeks. Over the past two weeks, how often have you been bothered by the following problems? 1. Little interest or pleasure in doing things Not at all 2. Feeling down, depressed, or hopeless Not at all 3. Thoughts that you would be better off or of hurting yourself in some way Not at all Homelessness/Food Insecurity Screen: In the past 2 months, have you been living in stable housing that you own, rent, or stay in as part of a household? Yes - Living in stable housing. Are you worried or concerned that in the next 2 months you may NOT have stable housing that you own, rent, or stay in as part of a household? No - Not worried about housing near future In the past three months did you ever run out of food and you were not able to access more food or have the money to buy more food? No - No Food shortage Weight Mgmt-BMI 25-29.9: Most recent weight: 159 lb [72.3 kg] (04/30/2019 09:50) Most recent height: 66 in [167.6 cm] (04/30/2019 09:50) Calculated BMI: BODY MASS INDEX APR 30, 2019@09:50:24 25.7 BMI classification is OVERWEIGHT -- Patient advised that his/her BMI/weight is considered overweight/obese. The health risks of obesity (heart disease, diabetes, sleep apnea, hypertension, arthritis certain cancers) were reviewed and discussed with the patient. The benefits of a weight management treatment program, such as MOVE! were discussed and offered to the patient. Patient WOULD benefit from participation in a weight management program. Patient is NOT interested in participating in any weight management program at this time. HIV Screening : Patient has been offered HIV testing and has declined. I have explained that HIV testing is recommended for all adults, even if all risk factors are absent. /balbir/ LY DUNHAM LPN [facility]IMARY [facility] Signed: 04/30/2019 10:28 LY DUNHAM [facility]
--- OUTSIDE RECORDS SUMMARY | 2019-09-23 08:31 | XMS REPORT | Encounter Summary ---
Author Author Department of [facility] ELOY miller ALPHONSO Organization Department of [facility] Address [address] [place] [address] Phone Unavailable Care Team Providers Care Mail Carrier Technician Name Role Phone JUVENCIO PALUMBO PCP Unavailable [...] (PPO) COMPREHE NSIVE MAJOR Jan 08, 2019 [id number] ELOY KNIGHT [facility] ENT BC BS [place] PREFERRED PROVIDER ORGANIZATION (PPO) COMPREHE NSIVE MAJOR Jan 08, 2019 [id number] ELOY KNIGHT [facility] ENT BCBS [place] COMPREHENSIVE MAJOR MEDICAL USD 250 Jul 10, 2015 [id number] [phone] ELOY KNIGHT PATIENT BCBS [place] COMPREHENSIVE MAJOR MEDICAL USD 250 Jul 10, 2015 [id number] [phone] ELOY KNIGHT PATIENT MEDICARE (WNR) MEDICARE (M) PART A Jan 08, 2019 PART A [id number] [phone] ELOY KNIGHT PATIENT MEDICARE (WNR) MEDICARE (M) PART A Jun 09, 2015 PART A [id number] [phone] ELOY KNIGHT PATIENT MEDICARE (WNR) MEDICARE (M) PART B Jun 09, 2015 PART B [id number] [phone] ELOY KNIGHT PATIENT [employer] Jul 10, 2015 [id number] [phone] ELOY KNIGHT PATIENT [employer] Jan 08, 2019 [facility] [phone] ELOY KNIGHT PATIENT Selected Encounter This section includes the information on record at [place] for the Encounter. Date/Time Encounter Type Encounter Description Reason Provider Source Apr 30, 2019 12:00 AM Outpatient Encounter EVENT (HISTORICAL) KLEBER HAMMOND IHRambo Encounter Template Text not used by [place] Assessments - Encounter Diagnoses No Data Provided for This Section Plan of Treatment: Future Appointments (+ 6 months) and Future Tests (+/- 45 day s) The Plan of Treatment section includes future care activities for the patient fr om all [place] treatment facilities. This section includes future appointments [...] the Encounter. The data comes from all [place] treatment facilities. Test Date/Time Test Type Test Details Facility Name Apr 26, 2019 12:00 AM Laboratory - Chemistry Order URINALYSIS UR INE SP ONE-TIME [facility] Surgical Procedures: All associated to the encounter No Data Provided for This Section Lab Results: +/- 30 days of the encounter This section includes the Chemistry and Hematology Lab R esults on record with [place] for the patient. Radiology Reports and Pathology Report s are provided separately, in subsequent sections. Lab Results This section contains the Chemistry/Hematology Results patrice t were resulted 30 days before or 30 days after the date of the Encounter. Date/Time Source Result Type Result - Unit Interpretation Reference Range Comment May 10, 2019 04:49 PM [facility] OCCULT BLOOD FIT x1 SCREE N Specimen Type: FECES Comment: No collection date noted OCCULT BLOOD FIT x1 SCREEN Negative NEG ATIVE Apr 30, 2019 08:24 AM [facility] B12 Specimen Type: SERUM Comment: ~ADD-ON TO BLOOD ALREADY DRAWN VITAMIN B12 (FV) 805 pg/mL 180-914 Apr 30, 2019 08:24 AM [facility] PSA (FV) Specimen Type: SERUM Comment: ~ADD-ON TO BLOOD ALREADY DRAWN PSA (FV) 0.34 ng/mL 0.0-4.0 Apr 30, 2019 08:24 AM [facility] TSH (FV) Specimen Type: SERUM Comment: ~ADD-ON TO BLOOD ALREADY DRAWN TSH (FV) 1.95 mcIU/mL 0.45-5.33 Apr 30, 2019 08:23 AM [facility] CBC Specimen Type: BLOOD No comment entered. [...] K/cmm 0.0-0.2 Apr 30, 2019 08:23 AM [facility] LIPID PROFILE Specimen Type: SERUM No comment entered. CHOLESTEROL, TOTAL (FV) 183 mg/dL 118-20 0 TRIGLYCERIDE (FV) 55 mg/dL <200 LDL CHOLESTEROL (CALCULATED) 109 HDL CHOLESTEROL (FV) 63 mg/dL >40 Apr 30, 2019 08:23 AM [facility] RENAL+LIVER PROFILE Specimen Type: SERUM No comment [...] mg/dL .61-1.24 Apr 30, 2019 08:23 AM [facility] C ANTIBODY HEPATITIS Specimen Type: SERUM Comment: [...] Nonrea ctive Apr 30, 2019 08:23 AM [facility] HIV Ag/Ab COMBO Specimen Type: SERUM Comment: [...] patient. The data comes from a ll [place] treatment facilities. It does not list Allergies/ADRs that were removed or entered in error. Some allergies/ADRs may be reported in t he Immunization section. Allergen Event Date Event Type Reaction(s) Severity Source PENICILLIN Apr 30, 2019 Propensity to adverse reactions to drug (diso rder) KLEBER HAMMOND PENICILLIN Jan 06, 2015 Propensity to adverse reactions to drug (disorder) Eruption [facility], VISN 15 Medications: VA dispensed (-15 months) and Non-VA Documented (Obtained Outside A) Section Date Range: 1) prescriptions processed by a VA pharmacy in the last 15 m [facility], and 2) all medications recorded in the [place] medical record as "non-VA medic ations". Pharmacy terms refer to [place] pharmacy's work on prescriptions. VA patient s are advised to take their medications as instructed by their health care team. The data comes from all [place] treatment facilities. Glossary of Pharmacy Terms:Active = A prescription that can be filled at the local [place] pharmacy.Active: On Hold = An active prescription that will not be filled until pharmacy resolves the issue.Active: Susp = An active prescription that is not scheduled to be filled yet.Clinic Order = A medication received during a visit to a [place] clinic or emergency department (currently not available).Discontinued [...] Non-VA Documented by: JUVENCIO PALUMBO nted at: [facility] ASPIRIN 81MG TAB,EC Non- VA TAKE ONE TABLET BY MOUTH ONCE A DAY Non-VA Documented by: JUVENCIO VICKume nted at: [facility] 40MG TAB Non-VA TAKE ONE- HALF TABLET BY MOUTH AT BEDTIME Non-VA Docume nted by: JUVENCIO PALUMBO nted at: [facility] LORATADINE 10MG TAB Non- VA TAKE ONE TABLET BY MOUTH ONCE DAILY Non-VA Documented by: JUVENCIO PALUMBO nted at: [facility] MULTIVITAMIN/MINERALS HERBAL CAP/TAB Non-VA TAKE 1 CAP/TAB BY MOUTH ONCE DAILY Non-VA Documented by: JUVENCIO PALUMBO nted at: [facility] VALACYCLOVIR HCL 500MG TAB Non-VA TAKE ONE TABLET BY MOUTH N on-VA Documented by: JUVENCIO PALUMBO nted at: [facility] Problems (Conditions): All historical and current Section Date Range: From patient's date of to the date document was create d. This section includes a list of Problems (Conditions) know n to [facility] for the patient. It includes both active and inacti ve problems (conditions). The data comes from all [place] treatment facilities. Problem Status Problem Code Date of Onset Date of Resolution Comm ent(s) Provider Source H/O: hypertension Active [id number] ALICIA VICK [facility] Hyperlipidemia Active [id number] JUVENCIO VICK [facility] Impaired fasting glucose Active [id number] YENY MAJOR [facility] Knee pain Active [id number] JUVENCIO VICK [facility] Radiology Reports: +/- 30 days of the encounter No Data Provided for This Section Pathology Reports: +/- 30 days of the encounter No Data Provided for This Section Encounter Notes: All associated encounter notes No Data Provided for This Section
--- OUTSIDE RECORDS SUMMARY | 2019-09-23 08:33 | XMS REPORT | Encounter Summary ---
Author Author Department of [facility] ELOY miller ALPHONSO Organization Department of [facility] Address [address] [place] [address] Phone Unavailable Care Team Providers Care Brown Stock Washer Name Role Phone JUVENCIO PALUMBO PCP Unavailable [...] (PPO) COMPREHE NSIVE MAJOR Jan 08, 2019 [id number] ELOY KNIGHT CODY ENT BC BS [place] BLU[place]ARD PREFERRED PROVIDER ORGANIZATION (PPO) COMPREHE NSIVE MAJOR Jan 08, 2019 [id number] ELOY KNIGHT CODY ENT BCBS [place] COMPREHENSIVE MAJOR MEDICAL USD 250 Jul 10, 2015 [id number] [phone] ELOY KNIGHT PATIENT [place]BS [place] COMPREHENSIVE MAJOR MEDICAL USD 250 Jul 10, 2015 [id number] ELOY KNIGHT PATIENT MEDICARE (WNR) MEDICARE (M) PART A Jan 08, 2019 PART A [id number] A [phone] ELOY KNIGHT PATIENT MEDICARE (WNR) MEDICARE (M) PART A Jun 09, 2015 PART A [id number] ELOY KNIGHT PATIENT MEDICARE (WNR) MEDICARE (M) PART B Jun 09, 2015 PART B [id number] [phone] ELOY KNIGHT PATIENT [employer] PRESCRIPTION [place]BS [place] Jul 10, 2015 [id number] [phone] ELOY KNIGHT PATIENT [employer] PRESCRIPTION [place] Jan 08, 2019 [id number] ELOY KNIGHT PATIENT Selected Encounter This section includes the information on record at [place] for the Encounter. Date/Time Encounter Type Encounter Description Reason Provider Source Mar 18, 2019 03:29 PM Outpatient Encounter TELEPHONE PRIMARY CAR E ICD-10-CM Z71.89 Other specified counseling with Provider Comments: Counseling,Oth Specified MELVIN HARVEY I [facility] IHE Encounter Template Text not used by [place] Assessments - Encounter Diagnoses This section includes the primary and secondary diag noses documented for the Encounter. Date/Time Primary/Secondary Diagnosis Diagnosis Name Provider Source Mar 18, 2019 03:29 PM PRIMARY Other specified counseling MELVIN HARTMAN I [facility] Plan of Treatment: Future Appointments (+ 6 months) and Future Tests (+/- 45 day s) The Plan of Treatment section includes future care activities for the patient fr om all [place] treatment facilities. This section includes future appointments and fu ture orders which are active, pending or scheduled. Future Appointments This section includes appointments that were scheduled t o occur 6 months from the date of the Encounter, up to a maximum of 20 appointme nts. The data comes from all [facility]. Appointment Date/Time Appointment Type Appointment Facili ty Name Apr 30, 2019 09:00 AM AMBULATORY - NONE [facility] Apr 30, 2019 10:00 AM AMBULATORY - MEDICINE [facility] Active, Pending, and Scheduled Orders This section [...] the Encounter. The data comes from all [facility]. Test Date/Time Test Type Test Details Facility Name Apr 26, 2019 12:00 AM Laboratory - Chemistry Order URINALYSIS UR INE SP ONE-TIME [facility] Surgical Procedures: All associated to [...] and tobacco- related health factors from the [place] facility where the Encounter took place. Current Smoking Status This section includes the most current smoking, or tobacco -related health factor, from the [facility] facility where the Encounter took place. Date/Time Current Smoking Status Comment Facility Mar 18, 2019 03:39 PM VA-TOBACCO USE FILE KEEPER NO [facility] Tobacco Use History This section includes a history of the smoking, or tobacco -related health factors, that were collected on or before the date of the Encoun ter. The data comes from the [place] facility where the Encounter took place. Date/Time Smoking Status/Tobacco Use Comment Facil ity Mar 18, 2019 03:39 PM VA-TOBACCO USE 30 YEARS OR MORE [facility] IN [place] CLINIC Mar 18, 2019 03:39 PM VA-TOBACCO USE ADVICE PLIN [place] [facility] Mar 18, 2019 03:39 PM VA-TOBACCO USE FILE KEEPER NO PLIN [facility] Mar 18, 2019 03:39 PM VA-TOBACCO USE MED NO [facility] Mar 18, 2019 03:39 PM VA-TOBACCO USE WI 30 MIN OF WAKEUP J OPLIN [facility] Mar 18, 2019 03:39 PM VA-TOBACCO USER EVERY DAY [facility] Advance Directives: All historical and current No Data Provided for This Section Allergies and Adverse Reactions (ADRs): All historical and current Section Date Range: From patient's date of to the date document was create d. This section includes Allergies and Adverse Reactions (ADR s) on record with VA for the patient. The data comes from a ll [place] treatment facilities. It does not list Allergies/ADRs that were removed or entered in error. Some allergies/ADRs may be reported in t Immunization section. Allergen Event Date Event Type Reaction(s) Severity Source PENICILLIN Apr 30, 2019 Propensity to adverse reactions to drug (diso rder) [facility] PENICILLIN Jan 06, 2015 Propensity to adverse reactions to drug (disorder) Eruption [facility] 15 Medications: VA dispensed (-15 months) and Non-VA Documented (Obtained Outside A) Section Date Range: 1) prescriptions processed by a VA pharmacy in the last 15 m [facility], and 2) all medications recorded in the VA medical record as "non-VA medic ations". Pharmacy terms refer to VA pharmacy's work on prescriptions. VA patient s are advised to take their medications as instructed by their health care team. The data comes from all [place] treatment facilities. Glossary of Pharmacy Terms:Active = A prescription that can be filled at the local VA pharmacy.Active: On Hold = An active prescription that will not be filled until pharmacy resolves the issue.Active: Susp = An active prescription that is not scheduled to be filled yet.Clinic Order = A medication received during a visit to a [place] clinic or emergency department (currently not available).Discontinued [...] other providers that was filled outside the [place]. Or, it may be an over the [...] Documented by: JUVENCIO PALUMBO nted at: [facility] ASPIRIN 81MG TAB,EC Non- VA TAKE ONE TABLET BY MOUTH ONCE A DAY Non-VA Documented by: JUVENCIO VICK Docume nted at: [facility] [place] 40MG TAB Non-VA TAKE ONE- HALF TABLET BY MOUTH AT BEDTIME Non-VA Docume nted by: JUVENCIO PALUMBO nted at: [facility] LORATADINE 10MG TAB Non- VA TAKE ONE TABLET BY MOUTH ONCE DAILY Non-VA Documented by: JUVENCIO PALUMBO nted at: [facility] MULTIVITAMIN/MINERALS HERBAL CAP/TAB Non-VA TAKE 1 CAP/TAB BY MOUTH ONCE DAILY Non-VA Documented by: JUVENCIO PALUMBO nted at: [facility] VALACYCLOVIR HCL 500MG TAB Non-VA TAKE ONE TABLET BY MOUTH N on-VA Documented by: JUVENCIO PALUMBO nted at: [facility] Problems (Conditions): All historical and current Section Date Range: From patient's date of to the date document was create d. This section includes a list of Problems (Conditions) know n to VA for the patient. It includes both active and inacti ve problems (conditions). The data comes from all [place] treatment facilities. Problem Status Problem Code Date of Onset Date of Resolution Comm ent(s) Provider Source H/O: hypertension Active [id number] ALICIA VICK [facility] Hyperlipidemia Active [id number] [facility] Impaired fasting glucose Active [id number] YENY MAJOR [facility] Knee pain Active 35690513 JUVENCIO VICK [facility] Radiology Reports: +/- 30 days of the encounter No Data Provided for This Section Pathology Reports: +/- 30 days of the encounter No Data Provided for This Section Encounter Notes: All associated encounter notes This section contains the clinical notes associated to the Encounter. Date/Time Encounter Note(s) Provider Source Mar 18, 2019 03:29 PM TELEPHONE ENCOUNTER NOTE: LOCAL TITLE: TELECARE STANDARD TITLE: TELEPHONE ENCOUNTER NOTE DATE OF NOTE: MAR 18, 2019@15:29 ENTRY DATE: MAR 18, 2019@15:29:41 AUTHOR: MELVIN HARVEY I EXP COSIGNER: URGENCY: STATUS: COMPLETED TELECARE Has ADDENDA PATIENT NAME: ELOY KNIGHT ALPHONSO SSN: [id number] FUTURE APPOINTMENTS: No Scheduled Appointments at this time. PATIENT'S HOME PHONE: REASON FOR CALL: Pt. is called states that he has had a hernia to his right groin for 15 years. He has always been able to reduce the hernia in the past. Over the last few months he is no longer able to do this states "I push it in but it comes right back out." He has intermittent sharp pain that lasts for a few seconds when he coughs only. He denies severe pain that does not resolve, n/v or fever. He has regular BM's. He was instructed to seek ER care if has any of the above stated symptoms of a strangulated hernia. Pt. verbalized understanding. (Patient has been instructed to go to [facility] Emergency Room or to seek care elsewhere. FINANCIAL DISCLAIMER was read to caller ( ) Yes (X ) Not Applicable) FINANCIAL DISCLAIMER: "This is not an authorization for VA Payment" and also "Have hospital contact the nearest [place] Facility for transfer upon stabilization". /balbir/ MELVIN HARVEY RN PRIMARY CARE REGISTERED NURSE-LEX Signed: 03/18/2019 15:34 Receipt Acknowledged By: 03/19/2019 07:01 /balbir/ [facility] PRIMARY CARE ADVANCED MEDICAL SUPPORT JORGE 03/19/2019 ADDENDUM STATUS: COMPLETED PER TRIAGE NURSE, PT HAS AGREED TO BE SCHEDULED FOR 04/30/19 #MUCKER COFFERDAM# /balbir/ [facility] PRIMARY CARE ADVANCED MEDICAL SUPPORT -LEX Signed: 03/19/2019 07:03 MELVIN HARVEY [place] [facility]
--- OUTSIDE RECORDS SUMMARY | 2019-09-23 08:33 | XMS REPORT | Encounter Summary ---
Author Author Department of [facility] ELOY miller ALPHONSO Organization Department of [facility] Address [address] [place] [address] Phone Unavailable Care Team Providers Care Casino Shift Manager Name Role Phone JUVENCIO PALUMBO PCP Unavailable [...] (PPO) COMPREHE NSIVE MAJOR Jan 08, 2019 [id number] ELOY KNIGHT CODY ENT [place] BS [place] PREFERRED PROVIDER ORGANIZATION (PPO) COMPREHE NSIVE MAJOR Jan 08, 2019 [id number] ELOY KNIGHT CODY ENT BCBS [place] COMPREHENSIVE MAJOR MEDICAL USD 250 Jul 10, 2015 [id number] [phone] ELOY KNIGHT PATIENT [place] COMPREHENSIVE MAJOR MEDICAL USD 250 Jul 10, 2015 [id number] [phone] EUGENEELOY PATIENT MEDICARE (WNR) MEDICARE (M) PART A Jan 08, 2019 PART A [id number] A [phone] EUGENEELOY PATIENT MEDICARE (WNR) MEDICARE (M) PART A Jun 09, 2015 PART A [id number] ELOY KNIGHT PATIENT MEDICARE (WNR) MEDICARE (M) PART B Jun 09, 2015 PART B [id number] ELOY KNIGHT PATIENT [employer] PRES[employer] [place] Jul 10, 2015 [id number] [phone] ELOY KNIGHT PATIENT [employer] [place] Jan 08, 2019 KSS [id number] ELOY KNIGHT PATIENT Selected Encounter This section includes the information on record at [place] for the Encounter. Date/Time Encounter Type Encounter Description Reason Provider Source Oct 17, 2018 12:00 AM Outpatient Encounter COMMUNITY CARE CONSULT [facility] Encounter Template Text not used by [place] Assessments - Encounter Diagnoses No Data Provided [...] Adverse Reactions (ADR s) on record with [place] for the patient. The data comes from a [facility] treatment facilities. It does not list Allergies/ADRs that were removed or entered in error. Some allergies/ADRs may be reported in t Immunization section. Allergen Event Date Event Type Reaction(s) Severity Source PENICILLIN Apr 30, 2019 Propensity to adverse reactions to drug (diso rder) [facility] PENICILLIN Jan 06, 2015 Propensity to adverse reactions to drug (disorder) Eruption [facility] 15 Medications: VA dispensed (-15 months) and Non-VA Documented (Obtained Outside A) Section Date Range: 1) prescriptions processed by a [place] pharmacy in the last 15 m ont, and 2) all medications recorded in the [place] medical record as "non-VA medic ations". Pharmacy terms refer to VA pharmacy's work on prescriptions. VA patient s are advised to take their medications as instructed by their health care team. The data comes from all [place] treatment facilities. Glossary of Pharmacy Terms:Active = A prescription that can be filled at the local [place] pharmacy.Active: On Hold = An active prescription that will not be filled until pharmacy resolves the issue.Active: Susp = An active prescription that is not scheduled to be filled yet.Clinic Order = A medication received during a visit to a [place] clinic or emergency department (currently not available).Discontinued [...] may be a prescription from either the [place] or other providers that was filled outside the [place]. Or, it may be an over the [...] JUVENCIO PALUMBO nted at: [facility] ASPIRIN 81MG TAB,EC Non- VA TAKE ONE TABLET BY MOUTH ONCE A DAY Non-VA Documented by: JUVENCIO VICK [facility]ume nted [facility] [place] 40MG TAB Non-VA TAKE ONE- HALF TABLET BY MOUTH AT BEDTIME Non-VA Docume nted by: JUVENCIO PALUMBO nted at: [facility] LORATADINE 10MG TAB Non- VA TAKE ONE TABLET BY MOUTH ONCE DAILY Non-VA Documented by: JUVENCIO PALUMBO nted at: [facility] MULTIVITAMIN/MINERALS HERBAL CAP/TAB Non-VA TAKE 1 CAP/TAB BY MOUTH ONCE DAILY Non-VA Documented by: JUVENCIO PALUMBO nted at: [facility] VALACYCLOVIR HCL 500MG TAB Non-VA TAKE ONE TABLET BY MOUTH N on-VA Documented by: JUVENCIO PALUMBO nted at: [facility] Problems (Conditions): All historical and current Section Date Range: From patient's date of to the date document was create d. This section includes a list of Problems (Conditions) know n to [place] for the patient. It includes both active and inacti ve problems (conditions). The data comes from all [place] treatment facilities. Problem Status Problem Code Date of Onset Date of Resolution Comm ent(s) Provider Source H/O: hypertension Active [id number] ALICIA VICK [facility] Hyperlipidemia Active 47866849 JUVENCIO VICK [facility] Impaired fasting glucose Active 552541310 YENY MAJOR [facility] Knee pain Active 07719373 JUVENCIO VICK [facility] Radiology Reports: +/- 30 days of the encounter No Data Provided for This Section Pathology Reports: +/- 30 days of the encounter No Data Provided for This Section Encounter Notes: All associated encounter notes This section contains the clinical notes associated to the Encounter. Date/Time Encounter Note(s) Provider Source Oct 17, 2018 12:00 AM NONVA CONSULT: LOCAL TITLE: COMMUNITY CARE-CONSULT RESULT NOTE STANDARD TITLE: NONVA CONSULT DATE OF NOTE: OCT 17, 2018 ENTRY DATE: MAY 30, 2019@11:51:22 AUTHOR: PARRISH STEVE COSIGNER: URGENCY: STATUS: COMPLETED VistA Imaging - Scanned Document [facility] 10/17/2018 EVALUATION /balbir/ PARRISH STEVE Rn Testing Signed: 05/30/2019 11:51 PARRISH STEVE
--- OUTSIDE RECORDS SUMMARY | 2019-09-23 08:38 | XMS REPORT | Continuity of Care Document ---
Author Organization Unknown Address Unknown Phone Unavailable Allergies Active Description Code Type Severity Reaction Onset Reported/Identified Relationship to Patient Clinical Status Yes PENICILLIN PENICILLIN Unknown N/A 02/20/2012 Medications There is no data. 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 04/27/2018 EUSEBIO LAI INTERPRETER Ot R91.8 OTHER NONSPECIFIC ABNORMAL FINDING OF DAVIN 05/15/2018 EUSEBIO LAI INTERPRETER Ot N43.2 OTHER HYDROCELE 05/15/2018 EUSEBIO LAI INTERPRETER Ot N50.3 CYST OF EPIDIDYMIS 05/15/2018 EUSEBIO LAI INTERPRETER Ot R91.8 OTHER NONSPECIFIC ABNORMAL FINDING OF DAVIN 06/11/2018 EUSEBIO LAI INTERPRETER Ot N43.2 OTHER HYDROCELE 06/11/2018 EUSEBIO LAI INTERPRETER Ot N50.3 CYST OF EPIDIDYMIS 06/11/2018 EUSEBIO LAI INTERPRETER Ot R91.8 OTHER NONSPECIFIC ABNORMAL FINDING OF DAVIN 08/28/2018 EUSEBIO LAI INTERPRETER Ot G62.9 POLYNEUROPATHY, UNSPECIFIED 08/28/2018 EUSEBIO LAI INTERPRETER Ot 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 Results There is no data. Encounters ACCT No. Visit Date/Time Discharge Status Pt. Type Provider Facility Loc./Unit Complaint [id number] 08/27/2018 12:19:00 23:59:59 CLS Outpatient EUSEBIO LAI APRN [facility] PERIPHERAL VASCULAR DIS EASE [id number] 04/26/2018 13:40:00 23:59:59 CLS Outpatient EUSEBIO LAI APRN [facility] RAD HYDROCELE [id number] 04/24/2018 09:26:00 23:59:59 CLS Preadmit EUSEBIO LAI APRN [facility] RAD SOLITARY PULM NODULE [id number] 04/24/2018 09:23:00 23:59:59 CLS Preadmit EUSEBIO LAI APRN [facility] RAD HYDROCELE [id number] 01/10/2014 07:41:00 23:59:59 CLS Outpatient BESSY PANDA INTERPRETER [facility] RAD ABD PAIN,RT SIDED INGUI NAL PAIN [id number] 01/07/2014 12:09:00 23:59:59 CLS Outpatient BESSY PANDA INTERPRETER [facility] RAD SHARP R TESTICULAR PAIN [id number] 08/29/2013 12:34:00 23:59:59 CLS Outpatient YAN LOO, KEVYN Blake [facility] RAD SINUSITIS [id number] 08/23/2013 12:31:00 23:59:59 CLS Outpatient
--- NOTE | 2019-09-23 10:01 | ED Cough/URI ---
General Chief Complaint: Fever-Adult/Adol Stated Complaint: FEVER;HEADACHE;COUGH Source: patient Exam Limitations: no limitations History of Present Illness Date Seen by Provider: Sep 23, 2019 Time Seen by Provider: 09:45 Initial Comments Initiated as virtual visit. Here with report of sinus congestion and pain for 2 days. Has had low grad fever up to 100.8 F associated with nausea and decreased appetite. Denies vomitting or diarrhea. Has had body aches. Feels like typical sinus infection with pain in the upper teeth. 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 Timing/Duration: other (2 days) Severity/Quality: mild, moderate, other (sinus congestion) Prior Episodes/Possible Cause: occasional episodes Modifying Factors: Improves With Rest Associated Symptoms: facial pain, fever/chills, muscle aches, nasal congestion, nasal drainage, sinus infection Allergies and Home Medications Allergies Uncoded Allergies: PENICILLIN (Allergy, Unknown, 02/20/12) Home Medications Amlodipine Besylate 5 Mg Tablet, 5 MG PO DAILY, (Reported) Atorvastatin 20 Mg Tablet, 1 EACH PO EVERY OTHER DAY, (Reported) Levofloxacin 500 Mg Tablet, 500 MG PO DAILY Prescribed by: MATTHEW GALINDO on 09/23/19 1112 Patient Home Medication List Home Medication List Reviewed: Yes Review of Systems Review of Systems Constitutional: see HPI EENTM: see HPI Respiratory: no symptoms reported Cardiovascular: no symptoms reported Gastrointestinal: loss of appetite, nausea Genitourinary: no symptoms reported Musculoskeletal: muscle pain; No muscle weakness Skin: no symptoms reported Past Fxykuyk-Fshbmr-Adhlrg Hx Past Med/Social Hx: Reviewed Nursing Past Med/Soc Hx Patient Social History Alcohol Use: Occasionally Uses Recreational Drug Use: No Smoking Status: Current Everyday Smoker Recent Foreign Travel: No Contact w/Someone Who Travel: No Immunizations Up To Date Date of Influenza Vaccine: Jan 09, 2012 Past Medical History Respiratory: No Cardiac: Yes High Cholesterol, Hypertension Family Medical History Reviewed Nursing Family Hx No Pertinent Family Hx Physical Exam Vital Signs - First Documented 09/23/19 09:15 Temp 37.4 Pulse 93 Resp 22 B/P (MAP) 135/80 (98) Pulse Ox 96 O2 Delivery Room Air Capillary Refill : Height: '" Weight: lbs. oz. kg; BMI Method: General Appearance: WD/WN, no apparent distress Neurologic/Psychiatric: alert, oriented x 3 Progress/Results/Core Measures Suspected Sepsis SIRS Temperature: Pulse: Respiratory Rate: Laboratory Tests 09/23/19 10:00: White Blood Count 15.2H Blood Pressure / Mean: Laboratory Tests 09/23/19 10:00: Creatinine 1.02, Platelet Count 190, Total Bilirubin 1.2H Results/Orders Lab Results Laboratory Tests Test 09/23/19 10:00 Range/Units White Blood Count 15.2 H 4.3-11.0 10^3/uL Red Blood Count 5.55 4.35-5.85 10^6/uL Hemoglobin 17.9 H 13.3-17.7 G/DL Hematocrit 53 40-54 % Mean Corpuscular Volume 96 80-99 FL Mean Corpuscular Hemoglobin 32 25-34 PG Mean Corpuscular Hemoglobin Concent 34 32-36 G/DL Red Cell Distribution Width 13.3 10.0-14.5 % Platelet Count 190 130-400 10^3/uL Mean Platelet Volume 10.3 7.4-10.4 FL Neutrophils (%) (Auto) 82 H 42-75 % Lymphocytes (%) (Auto) 8 L 12-44 % Monocytes (%) (Auto) 9 0-12 % Eosinophils (%) (Auto) 1 0-10 % Basophils (%) (Auto) 0 0-10 % Neutrophils # (Auto) 12.5 H 1.8-7.8 X 10^3 Lymphocytes # (Auto) 1.3 1.0-4.0 X 10^3 Monocytes # (Auto) 1.3 H 0.0-1.0 X 10^3 Eosinophils # (Auto) 0.1 0.0-0.3 10^3/uL Basophils # (Auto) 0.0 0.0-0.1 10^3/uL Neutrophils % (Manual) 86 % Lymphocytes % (Manual) 7 % Monocytes % (Manual) 5 % Eosinophils % (Manual) 0 % Basophils % (Manual) 0 % Band Neutrophils 2 % Blood Morphology Comment NORMAL Sodium Level 134 L 135-145 MMOL/L Potassium Level 5.1 H 3.6-5.0 MMOL/L Chloride Level 100 98-107 MMOL/L Carbon Dioxide Level 19 L 21-32 MMOL/L Anion Gap 15 H 5-14 MMOL/L Blood Urea Nitrogen 15 7-18 MG/DL Creatinine 1.02 0.60-1.30 MG/DL Estimat Glomerular Filtration Rate > 60 BUN/Creatinine Ratio 15 Glucose Level 82 70-105 MG/DL Calcium Level 9.7 8.5-10.1 MG/DL Corrected Calcium 9.6 8.5-10.1 MG/DL Total Bilirubin 1.2 H 0.1-1.0 MG/DL Aspartate Amino Transf (AST/SGOT) 31 5-34 U/L Alanine Aminotransferase (ALT/SGPT) 23 0-55 U/L Alkaline Phosphatase 78 40-136 U/L C-Reactive Protein High Sensitivity 7.03 H 0.00-0.50 MG/DL Total Protein 8.3 H 6.4-8.2 GM/DL Albumin 4.1 3.2-4.5 GM/DL My Orders Orders - MATTHEW GALINDO MD Cbc With Automated Diff (09/23/19 09:49) Comprehensive Metabolic Panel (09/23/19 09:49) Hs C Reactive Protein (09/23/19 09:49) Coronavirus Sars-Cov-2 So 2018 (09/23/19 09:49) Manual Differential (09/23/19 10:00) Vital Signs/I&O 09/23/19 09/23/19 09:15 11:25 Temp 37.4 37.4 Pulse 93 93 Resp 22 22 B/P (MAP) 135/80 (98) 135/80 (98) Pulse Ox 96 96 O2 Delivery Room Air Capillary Refill : Progress Note #1: Progress Note Initiated as virtual visit. Due to complaint, we will check basic labs and will get COVID screen. Patient informed of Covid-19 isolation requirements. Monitor Patient.[id number]: Labs would indicate bacterial infection with sinusitis the leading concern. Covid testing pending. I have discussed at length regarding concerns and therapy. Patient would like to initiate outpatient therapy with ABX and states he will return for any concerns including SOA. D/C home with return precautions. Patient verbalized understanding of instructions and agreement with plan. Progress Note #2: Time: 18:17 Progress Note 09/24/19: I have made phone contact with the patient. He is continuing ABX as prescribed. States doing better. He will add Afrin Nasal [place] BID for 3 days. Denies SOA. Body aches controlled by OTC meds. Drinking plenty of fluids. Encourage to return for any concerns. Departure Impression Primary Impression: Sinus infection Qualified Codes: J01.90 - Acute sinusitis, unspecified Additional Impression: Covid-19 Evaluation Disposition: 01 HOME, SELF-CARE Condition: Stable Departure-Patient Inst. Decision time for Depature: 11:08 Referrals: KEVYN HEREDIA MD (PCP/Family) Primary Care Physician Patient Instructions: Coronavirus Disease 2019 (COVID-19) (DC), Sinusitis, Adult (DC) Add. Discharge Instructions: All discharge instructions reviewed with patient and/or family. Voiced understanding. Drink plenty of fluids and get plenty of rest. Take meds as directed. Follow up with your doctor in a few days for recheck. Return for worse pain, fever, v omiting, breathing problems or other concerns as needed. You are being evaluated for COVID-19. You will need to remain quarantined until test results are known. If you are negative, you should remain isolated until 3 days after symptoms have resolved. If positive, you will follow the directions of the health department. You may use tylenol/acetaminophen and or ibuprofen per pa ckage directions to control fever or pain. Please return immediately for any worsening. Scripts Levofloxacin (Levofloxacin) 500 Mg Tablet 500 MG PO DAILY, #7 TAB 0 Refills Prov: MATTHEW GALINDO MD 09/23/19 MATTHEW GALINDO MD Sep 23, 2019 10:01
[2019-09-23 10:24] LABS: BASOPHILS % (AUTO) 0 % (0-10); EOSINOPHILS # (AUTO) 0.1 10^3/uL (0.0-0.3); EOSINOPHILS % (AUTO) 1 % (0-10); HEMATOCRIT 53 % (40-54); HEMOGLOBIN 17.9 G/DL (13.3-17.7); LYMPHOCYTES # (AUTO) 1.3 X 10^3 (1.0-4.0); LYMPHOCYTES % (AUTO) 8 % (12-44); MEAN CORPUSCULAR HEMOGLOBIN 32 PG (25-34); MEAN CORPUSCULAR HGB CONC 34 G/DL (32-36); MEAN CORPUSCULAR VOLUME 96 FL (80-99); MEAN PLATELET VOLUME 10.3 FL (7.4-10.4); MONOCYTES # (AUTO) 1.3 X 10^3 (0.0-1.0); MONOCYTES % (AUTO) 9 % (0-12); NEUTROPHILS # (AUTO) 12.5 X 10^3 (1.8-7.8); NEUTROPHILS % (AUTO) 82 % (42-75); PLATELET COUNT 190 10^3/uL (130-400); RED CELL DISTRIBUTION WIDTH 13.3 % (10.0-14.5); WHITE BLOOD COUNT 15.2 10^3/uL (4.3-11.0)
[2019-09-23 10:50] LABS: ALANINE AMINOTRANSFERASE 23 U/L (0-55); ALBUMIN 4.1 GM/DL (3.2-4.5); ALKALINE PHOSPHATASE 78 U/L (40-136); BILIRUBIN,TOTAL 1.2 MG/DL (0.1-1.0); BUN/CREATININE RATIO 15; CALCIUM 9.7 MG/DL (8.5-10.1); CARBON DIOXIDE 19 MMOL/L (21-32); CHLORIDE 100 MMOL/L (98-107); CREATININE SERUM 1.02 MG/DL (0.60-1.30); GFR ESTIMATED > 60; GLUCOSE 82 MG/DL (70-105); SODIUM 134 MMOL/L (135-145); TOTAL PROTEIN 8.3 GM/DL (6.4-8.2)
[2019-09-23 10:54] LABS: POTASSIUM 5.1 MMOL/L (3.6-5.0)
[2019-09-23 11:03] LABS: BAND NEUTROPHILS 2 %; BASOPHILS % (MANUAL) 0 %; EOSINOPHILS % (MANUAL) 0 %; LYMPHOCYTES % (MANUAL) 7 %; MONOCYTES % (MANUAL) 5 %; NEUTROPHILS % (MANUAL) 86 %; RBC MORPH NORMAL
[2019-09-23] MEDS ORDERED: LEVO500T80 PO (11:12)
[2019-09-23 11:25] VITALS: BP 135/80
== END 2019-09-23 11:25 | disposition home or self-care (01) ==
LOC: EDUNIT# 07:44 → ER 07:45
DX: J32.9 Chronic sinusitis, unspecified (principal); I10 Essential (primary) hypertension; E78.00 Pure hypercholesterolemia, unspecified; F17.200 Nicotine dependence, unspecified, uncomplicated; Z20.828 Contact with and (suspected) exposure to other viral communicable diseases; Z88.0 Allergy status to penicillin
CPT/HCPCS: 80053; 85007; 85027; 86141; 99284; U0002; 36415; 87635

== ENCOUNTER → 2020-02-13 | Outpatient (CLI) | payer OTHER, BC ==
[~2020-02-13] MED LIST changes: +LEVO500T80 PO
== END ==
LOC: LABNPT 06:07
PROVIDERS: ATTEND Internal Medicine Gastroenterology
DX: Z01.812 Encounter for preprocedural laboratory examination (principal); Z20.828 Contact with and (suspected) exposure to other viral communicable diseases
CPT/HCPCS: 87635